=== PATIENT | female | born 1965 | race American Indian/Alaskan Native ===

== ENCOUNTER 2016-12-08 17:21 | Emergency (ER) | payer OTHER, MEDICARE ==
[2016-12-08 17:33] VITALS: BMI 26.3
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
[2016-12-08 21:11] VITALS: BP 120/72; PULSE 73; RESP 20; TEMP 98; O2SAT 98
== END 2016-12-08 21:09 | disposition home or self-care (01) ==
LOC: C.ER 17:21
DX: S13.9XXA Sprain of joints and ligaments of unspecified parts of neck, initial encounter (principal); V89.2XXA Person injured in unspecified motor-vehicle accident, traffic, initial encounter

== ENCOUNTER 2018-02-02 18:40 | Emergency (ER) | payer MEDICARE, OTHER ==
[2018-02-02 18:45] VITALS: BMI 25.0
--- NOTE | 2018-02-02 19:44 | C.PDOC ---
History Of Present Illness 52yo female, presents to the emergency department with complaints of reproducible chest pain, and fatigue that has been worsening over the past few days. Pain is intermittent in nature and worsened with deep breathing. Patient has a Hx of Lupus. Denies nausea/vomiting, fever or chills. No shortness of breath. Time Seen by Provider: 02/02/18 19:44 Chief Complaint (Nursing): Chest Pain History Per: Patient History/Exam Limitations: no limitations Past Medical History Reviewed: Historical Data, Nursing Documentation, Vital Signs Vital Signs: Last Vital Signs Temp 98.2 F 02/02/18 18:46 Pulse 61 02/02/18 18:46 Resp 20 02/02/18 18:46 BP 159/86 H 02/02/18 18:46 Pulse Ox 100 02/02/18 18:46 - Medical History PMH: Asthma - [facility] Procedures INJECT/INFUSE NEC (08/23/04) INTRAOPER CHOLANGIOGRAM (03/07/05) LAPAROSCOP LYSIS-PERITONEAL ADHES (08/09/06) LAPAROSCOP UNILAT SALPINGO-OOPHORECTOMY (08/09/06) LAPAROSCOPIC CHOLECYSTECTOMY (03/07/05) UMBIL HERNIA REPAIR NEC (08/09/06) Family History: States: No Known Family Hx - Social History Hx Alcohol Use: No Hx Substance Use: No - Immunization History Hx Tetanus Toxoid Vaccination: No Hx Influenza Vaccination: No Hx Pneumococcal Vaccination: Yes Review Of Systems Constitutional: Positive for: Malaise. Negative for: Fever Cardiovascular: Positive for: Chest Pain. Negative for: Edema Respiratory: Negative for: Cough Gastrointestinal: Negative for: Nausea, Vomiting Musculoskeletal: Negative for: Back Pain Physical Exam - Physical Exam Appears: Non-toxic, No Acute Distress Skin: Normal Color, Warm, Dry Head: Atraumatic, Normacephalic Eye(s): bilateral: Normal Inspection, PERRL, EOMI Nose: Normal Oral Mucosa: Moist Lips: Normal Appearing Neck: Normal ROM Chest: Symmetrical, Tenderness (chest wall) Cardiovascular: Rhythm Regular, No Murmur Respiratory: Normal Breath Sounds, No Accessory Muscle Use Gastrointestinal/Abdominal: Soft, No Tenderness Back: Normal Inspection Extremity: Normal ROM, No Deformity Neurological/Psych: Oriented x3, Normal Speech ED Course And Treatment - Laboratory Results Result Diagrams: 02/02/18 19:58 02/02/18 19:58 ECG: Interpreted By Me, Viewed By Me ECG Rhythm: Sinus Rhythm (52), Nonspecific Changes O2 Sat by Pulse Oximetry: 100 Pulse Ox Interpretation: Normal - Radiology CXR: Interpreted by Me, Viewed By Me CXR Interpretation: No: Infiltrates, Fracture, Pnemothorax Medical Decision Making Medical Decision Making: Upon provider reevaluation patient is feeling better, is medically stable, and requires no further treatment in the ED at this time. Patient will be discharged home with Rx for .caitlynrin Counseling was provided and all questions were answered regarding diagnosis and need for follow up with dr torres. There is agreement to discharge plan. Return if symptoms persist or worsen. I considered the following diagnoses: acute coronary syndrome, pulmonary embolism, lower respiratory infection, aortic dissection/aneurysm, pneumothorax, pericarditis, esophagitis/GERD, zoster and esophageal rupture but found them to be unlikely based on the history, physical exam, and diagnostics. My conclusions regarding the unlikely diagnoses were based on: the absence of significant EKG abnormalities, the lack of suggestive x-ray findings, the absence of significant abnormalities on cardiac monitoring, the absence of asymmetric pulses,. Pt feels better and wants to go home Disposition Counseled Patient/Family Regarding: Studies Performed, Diagnosis, Need For Followup - Disposition Referrals: Jim Alvarado MD [Staff Provider] - Disposition: HOME/ ROUTINE Disposition Time: 19:44 Condition: FAIR Additional Instructions: Please return if symptoms recur Instructions: Costochondritis (DC) Forms: [employer] (Slovak) - Clinical Impression Clinical Impression: Costochondritis - Scribe Statement The provider has reviewed the documentation as recorded by the Scribe (Catherine Sanchez) Provider Attestation: All medical record entries made by the Scribe were at my direction and personally dictated by me. I have reviewed the chart and agree that the record accurately reflects my personal performance of the history, physical exam, medical decision making, and the department course for this patient. I have also personally directed, reviewed, and agree with the discharge instructions and disposition.
[2018-02-02] MEDS ORDERED: Aspirin 325 mg EC Tablets PO STA (19:54)
[2018-02-02] MEDS ORDERED: Aspirin 325 mg EC Tablets PO ONE (20:01)
[2018-02-02 20:02] LABS: BASO % 0.5 % (0.0-2.0); EOS % 0.5 % (0.0-4.0); HEMOGLOBIN 11.1 g/dL (11.0-16.0); LYMPH # 1.3 K/uL (1.0-4.3); LYMPH % 35.4 % (20.0-40.0); MEAN CORPUSCULAR HEMOGLOBIN 24.9 pg (27.0-31.0); MEAN CORPUSCULAR HGB CONC 32.4 g/dL (33.0-37.0); MEAN PLATELET VOLUME 9.4 fL (7.2-11.7); MONO # 0.3 K/uL (0.0-0.8); MONO % 8.8 % (0.0-10.0); NEUT % 54.8 % (50.0-75.0); NRBC % 0.1 % (0.0-2.0); RBC 4.45 Mil/uL (3.80-5.20); RED CELL DISTRIBUTION WIDTH 15.4 % (11.5-14.5); WHITE BLOOD COUNT 3.7 K/uL (4.8-10.8)
[2018-02-02 20:12] LABS: INR 1.1; PROTHROMBIN TIME 11.7 SECONDS (9.7-12.2)
[2018-02-02 20:20] LABS: ALB/GLOB RATIO 1.5 (1.0-2.1); ALBUMIN 4.4 g/dL (3.5-5.0); ALT/SGPT 27 U/L (9-52); AST/SGOT 22 U/L (14-36); BLOOD UREA NITROGEN 12 mg/dL (7-17); CALCIUM 9.7 mg/dl (8.6-10.4); GFR NON-AFRICAN AMERICAN 58
[2018-02-02 20:30] LABS: B-TYPE NATRIURETIC PEPTIDE 181 pg/mL (0-900)
[2018-02-02 22:13] VITALS: BP 105/52; PULSE 65; RESP 14; TEMP 98; O2SAT 100
--- NOTE | 2018-02-03 15:15 | RAD ---
Date of service: 02/02/2018 PROCEDURE: CHEST RADIOGRAPH, 1 VIEW HISTORY: chest pain COMPARISON: None available. FINDINGS: LUNGS: Clear. PLEURA: No pneumothorax or pleural fluid seen. CARDIOVASCULAR: Normal. OSSEOUS STRUCTURES: No significant abnormalities. VISUALIZED UPPER ABDOMEN: Normal. OTHER FINDINGS: None. IMPRESSION: No active disease.
--- NOTE | 2018-02-05 10:05 | CARD ---
APPROVED REPORT Date of service: 02/02/2018 EKG Measurement Heart [id number] <Conclusion> Sinus bradycardia Otherwise normal ECG
== END 2018-02-02 22:44 | disposition home or self-care (01) ==
LOC: C.ER 18:40
DX: M94.0 Chondrocostal junction syndrome [Tietze] (principal)
CPT/HCPCS: 71045; 80053; 83880; 84484; 85025; 85610; 85730; 93005; 96374; 99285; J1885

== ENCOUNTER 2018-03-25 10:01 | Emergency (ER) | payer MEDICARE, OTHER ==
[2018-03-25 10:10] VITALS: BMI 25.8
[2018-03-25 10:14] VITALS: TEMP 98.7; O2SAT 97
[2018-03-25] MEDS ORDERED: Sodium Chloride 0.9% 1,000 ML IV ONE (10:40)
[2018-03-25] MEDS ORDERED: Sodium Chloride 0.9% 1,000 ML ONE (11:02)
[2018-03-25 11:11] LABS: BASO % 0.3 % (0.0-2.0); EOS % 0.1 % (0.0-4.0); HEMOGLOBIN 11.8 g/dL (11.0-16.0); LYMPH # 0.9 K/uL (1.0-4.3); LYMPH % 13.1 % (20.0-40.0); MEAN CELL VOLUME 77.5 fL (81.0-99.0); MEAN CORPUSCULAR HGB CONC 32.2 g/dL (33.0-37.0); MEAN PLATELET VOLUME 8.9 fL (7.2-11.7); MONO # 0.6 K/uL (0.0-0.8); MONO % 8.7 % (0.0-10.0); NEUT # 5.6 K/uL (1.8-7.0); NEUT % 77.8 % (50.0-75.0); NRBC % 0.1 % (0.0-2.0); RBC 4.72 Mil/uL (3.80-5.20)
[2018-03-25 11:14] LABS: WHITE BLOOD COUNT 7.1 K/uL (4.8-10.8)
[2018-03-25 11:20] LABS: ALBUMIN 4.6 g/dL (3.5-5.0); BLOOD UREA NITROGEN 14 mg/dL (7-17); CALCIUM 9.4 mg/dl (8.6-10.4); GFR NON-AFRICAN AMERICAN > 60
[2018-03-25 11:21] LABS: ALB/GLOB RATIO 1.3 (1.0-2.1); ALT/SGPT 29 U/L (9-52); AST/SGOT 25 U/L (14-36)
[2018-03-25 11:50] LABS: HCG,QUALITATIVE URINE NEGATIVE (NEGATIVE)
--- NOTE | 2018-03-25 11:50 | C.PDOC ---
History Of Present Illness 52 year old female with PMHx of lupus presents to the ED complaining of lupus exacerbation for 2 days. Reports headache and generalized pain all over her body, specifically in her joints. Pt notes she was on steroids for her lupus f or many years but was taken off 2 years ago. Pt had an MRI on 03/23/18 for chronic headache by Dr. More. No change in headache. Also notes dysuria started today. Denies any fever, chest pain, shortness of breath, trauma, visual changes, neck pain, leg swelling, abdominal pain, nausea, or vomiting. Time Seen by Provider: 03/25/18 10:16 Chief Complaint (Nursing): Headache History Per: Patient History/Exam Limitations: no limitations Onset/Duration Of Symptoms: Days (2) Current Symptoms Are (Timing): Still Present Quality: Aching Preceeding Symptoms: None Past Medical History Reviewed: Historical Data, Nursing Documentation, Vital Signs Vital Signs: Last Vital Signs Temp 98.7 F 03/25/18 10:09 Pulse 61 03/25/18 10:09 Resp 19 03/25/18 10:09 BP 123/84 03/25/18 10:09 Pulse Ox 97 03/25/18 10:09 - Medical History PMH: Asthma Other PMH: Lupues, pulmonary arterial HTN Surgical History: - [facility] Procedures INJECT/INFUSE NEC (08/23/04) INTRAOPER CHOLANGIOGRAM (03/07/05) LAPAROSCOP LYSIS-PERITONEAL ADHES (08/09/06) LAPAROSCOP UNILAT SALPINGO-OOPHORECTOMY (08/09/06) LAPAROSCOPIC CHOLECYSTECTOMY (03/07/05) UMBIL HERNIA REPAIR NEC (08/09/06) Family History: States: No Known Family Hx - Social History Hx Alcohol Use: Yes Hx Substance Use: No (past use of marijuana) - Immunization History Hx Tetanus Toxoid Vaccination: No Hx Influenza Vaccination: Yes (2018) Hx Pneumococcal Vaccination: Yes Review Of Systems Constitutional: Positive for: Other (generalized body aches ). Negative for: Fever, Chills Cardiovascular: Negative for: Chest Pain, Edema Respiratory: Negative for: Shortness of Breath Gastrointestinal: Negative for: Nausea, Vomiting Genitourinary: Negative for: Dysuria, Hematuria Neurological: Positive for: Headache Physical Exam - Physical Exam Appears: Non-toxic, No Acute Distress Skin: Warm, Dry, No Rash Head: Atraumatic, Normacephalic Eye(s): bilateral: Normal Inspection, PERRL, EOMI Nose: Normal Oral Mucosa: Moist Neck: Normal ROM, Supple Chest: Symmetrical Cardiovascular: Rhythm Regular Respiratory: Normal Breath Sounds, No Rales, No Rhonchi, No Wheezing Extremity: Normal ROM (5/5 strength ), Tenderness (diffuse joint tenderness), No Pedal Edema, No Deformity, No Swelling Neurological/Psych: Oriented x3, Normal Speech, Normal Motor, Normal Sensation Gait: Steady ED Course And Treatment - Laboratory Results Result Diagrams: 03/25/18 11:04 03/25/18 11:04 O2 Sat by Pulse Oximetry: 97 (RA) Pulse Ox Interpretation: Normal Progress Note: Patient given Toradol and IV fluids. Urine collected and sent to lab for analysis. On re-evaluation, pt states she feel better. Denies sob, chest pain, fever, abdominal pain , or fever. Discussed with her lab results. Instructed strict follow up with RA MD in 1-2 days. Disposition - Disposition Disposition: HOME/ ROUTINE Disposition Time: 12:12 Condition: STABLE Additional Instructions: Follow up with your primary medical doctor or clinic in 2-5 days for further elpidio luation. Take medications as prescribed. Return to the emergency department at any time if symptoms persist or worsen. Prescriptions: Methylprednisolone [Medrol Dose Pack (21 tabs)] 4 mg PO DAILY #21 mg Naproxen [Naprosyn] 1 tab PO BID PRN #20 tab PRN Reason: Pain Nitrofurantoin Macrocrystals [Macrobid] 1 cap PO BID #14 cap Instructions: Urinary Tract Infection, Adult (DC), Lupus (DC) Forms: [employer] (Polish) - Clinical Impression Clinical Impression: SLE exacerbation, Headache - PA / SECURITIES TRADER / Resident Statement MD/DO has reviewed & agrees with the documentation as recorded. - Scribe Statement The provider has reviewed the documentation as recorded by the Scribjulio c Rebolledo All medical record entries made by the Scribe were at my direction and personally dictated by me. I have reviewed the chart and agree that the record accurately reflects my personal performance of the history, physical exam, medical decision making, and the department course for this patient. I have also personally directed, reviewed, and agree with the discharge instructions and disposition.
[2018-03-25 11:51] LABS: SQUAMOUS EPITHIAL 7 /hpf (0-5); URINE BACTERIA RARE (<OCC); URINE BILIRUBIN NEGATIVE (NEGATIVE); URINE BLOOD 3+ (NEGATIVE); URINE CLARITY Hazy (Clear); URINE COLOR Yellow (YELLOW); URINE GLUCOSE (UA) NORMAL (Normal); URINE LEUKOCYTE ESTERASE 3+ Leu/uL (Negative); URINE PROTEIN 2+ mg/dL (NEGATIVE); URINE UROBILINOGEN NORMAL mg/dL (0.2-1.0)
[2018-03-25] MEDS ORDERED: cefTRIAXone IV 1 gm in Dextros 50 ML IV ONE (12:12)
[2018-03-25] MEDS ORDERED: cefTRIAXone 1 gm 1 GM/100 ML BAG IVPB ONE (12:24)
[2018-03-25 13:00] VITALS: BP 126/85; PULSE 75; RESP 18
== END 2018-03-25 13:00 | disposition home or self-care (01) ==
LOC: C.ER 10:01
DX: M32.9 Systemic lupus erythematosus, unspecified (principal); R51 Headache
CPT/HCPCS: 80053; 81001; 84703; 85025; 87086; 87181; 96361; 96374; 96375; 99284; J0696; J1885; J7030

== ENCOUNTER 2018-07-29 09:11 | Emergency (ER) | payer MEDICARE, OTHER ==
--- NOTE | 2018-07-29 09:36 | C.PDOC ---
History Of Present Illness 52 year old female presents for evaluation of persistent headache x5 months, and new onset of uncontrolled bilateral finger movements that started today morning. Pt notes intermittent frontal headache that radiates posteriorly, seen 03/2018 for the same. Pt reports prior PMD visit x2 months ago where she was dx with eyeglass problem but notes no improvement in symptoms with updated eyeglass prescription and limited relief with Excedrin. She also reports saw my fingers stiffen and twist and move by themselves, now resolved. Denies fever, chills, photophobia, nausea, vomiting, and any other associated symptoms. PERSIST FAIRCHILD X 5 MONTHS, NEW ONSET UNCONTROLL B/L FINGER MOVEMENTS ONSET THIS MORNING. PS "SAW MY FINGERS STIFFEN AND TWIST AND MOVE BY THEMSELVES". NOW RESOLVED. INTERMIT FRONTAL TO RADIATION POST FAIRCHILD X 5 MO, SEEN 03/2018 FOR SAME. SAW PMD FOR SAME 2 MO AGO, DX "EYEGLASS PROBLEM" BUT NO IMPROVE W UPDATED EYE GLASS PRESCRIPTION. LIMITED RELIEF W EXCEDRIN. NO OTHER ASSOC SX EXAM NAD NEURO NO FOCAL DEF AO3 GAIT WNL REMAINDER NEG Time Seen by Provider: 07/29/18 09:33 Chief Complaint (Nursing): Headache History Per: Patient History/Exam Limitations: no limitations Onset/Duration Of Symptoms: Days Current Symptoms Are (Timing): Still Present Recent travel outside of the [place]: No Past Medical History Vital Signs: Last Vital Signs Temp 98.6 F 07/29/18 09:17 Pulse 73 07/29/18 09:17 Resp 18 07/29/18 09:17 BP 165/96 H 07/29/18 09:17 Pulse Ox 100 07/29/18 09:17 - Medical History PMH: Asthma Surgical History: - [facility] Procedures INJECT/INFUSE NEC (08/23/04) INTRAOPER CHOLANGIOGRAM (03/07/05) LAPAROSCOP LYSIS-PERITONEAL ADHES (08/09/06) LAPAROSCOP UNILAT SALPINGO-OOPHORECTOMY (08/09/06) LAPAROSCOPIC CHOLECYSTECTOMY (03/07/05) UMBIL HERNIA REPAIR NEC (08/09/06) Family History: States: Unknown Family Hx - Social History Hx Alcohol Use: Yes Hx Substance Use: No - Immunization History Hx Tetanus Toxoid Vaccination: No Hx Influenza Vaccination: Yes Hx Pneumococcal Vaccination: No Review Of Systems Except As Marked, All Systems Reviewed And Found Negative. Constitutional: Negative for: Fever, Chills Eyes: Negative for: Other ((-) photophobia. ) Gastrointestinal: Negative for: Nausea, Vomiting Musculoskeletal: Positive for: Other ((+) uncontrolled bilateral finger movements. ) Neurological: Positive for: Headache Physical Exam - Physical Exam Appears: Non-toxic, No Acute Distress Skin: Warm, Dry, No Rash Head: Atraumatic, Normacephalic Eye(s): bilateral: Normal Inspection Oral Mucosa: Moist Neck: Normal ROM, Supple Chest: Symmetrical, No Deformity Cardiovascular: Rhythm Regular, No Murmur Respiratory: Normal Breath Sounds, No Rales, No Rhonchi, No Wheezing Gastrointestinal/Abdominal: Normal Exam, Soft, No Tenderness Extremity: Bilateral: Atraumatic, Normal Color And Temperature, Normal ROM Neurological/Psych: Oriented x3, Normal Speech, Normal Cognition, No Other ((-) no focal deficits ) ED Course And Treatment - Laboratory Results Result Diagrams: 07/29/18 09:59 07/29/18 09:59 ECG: Interpreted By Me, Viewed By Me ECG Rhythm: Sinus Rhythm ECG Interpretation: Normal Rate From EC O2 Sat by Pulse Oximetry: 100 (RA) Pulse Ox Interpretation: Normal - CT Scan/US CT Head Other Rad Studies (CT/US): Read By Radiologist, Radiology Report Reviewed CT/US Interpretation: FINDINGS: HEMORRHAGE: No intracranial hemorrhage. BRAIN : No mass effect or edema. Minimal age-appropriate atrophy. No white matter ischemic change. No evidence of acute infarct. VENTRICLES: Unremarkable. No hydrocephalus. CALVARIUM: Unremarkable. PARANASAL SINUSES: Unremarkable as visualized. No significant inflammatory changes. MASTOID AIR CELLS: Unremarkable as visualized. No inflammatory changes. OTHER FINDINGS: None. IMPRESSION: No intracranial mass, hemorrhage or evidence of acute infarct. Minimal atrophy. Otherwise unremarkable examination. Progress - Re-Evaluation Re-evaluation Note: 07/29/18 11:00 NO RECUR FINGER SX SINCE INITIAL EVAL. HEAD CT NEG. PERSIST FAIRCHILD. NEURO INTACT 07/29/18 13:07 FEELS BETTER NEURO INTACT. ADVISED NEED FOR NEUROLOGY FU, REFERRALS GIVEN - Data Reviewed Data Reviewed: Lab, Diagnostic imaging, Old records Medical Decision Making Medical Decision Making: Initial plan: -CT Head w/o contrast -Blood sent. Disposition Counseled Patient/Family Regarding: Studies Performed, Diagnosis, Need For Followup, Rx Given - Disposition Referrals: Lata Devlin MD [Staff Provider] - Juan Navarro MD [Staff Provider] - [facility] [Outside] [facility] [Outside] Disposition: HOME/ ROUTINE Disposition Time: 13:08 Condition: IMPROVED Additional Instructions: FOLLOW UP WITH NEUROLOGY. RETURN IF WORSENING SYMPTOMS Prescriptions: Metoclopramide [Reglan] 1 tab PO TID PRN #25 tab PRN Reason: Nausea/Vomiting Instructions: Headache, Adult (DC) Forms: [employer] (Estonian) - Clinical Impression Clinical Impression: Headache, Abnormal involuntary movement - Scribe Statement The provider has reviewed the documentation as recorded by the Scribe (Agustina Agustin) Provider Attestation: All medical record entries made by the Scribe were at my direction and personally dictated by me. I have reviewed the chart and agree that the record accurately reflects my personal performance of the history, physical exam, medical decision making, and the department course for this patient. I have also personally directed, reviewed, and agree with the discharge instructions and disposition.
[2018-07-29 09:47] VITALS: BMI 27.2
[2018-07-29 10:09] LABS: BASO % 0.9 % (0.0-2.0); EOS % 0.4 % (0.0-4.0); HEMOGLOBIN 12.6 g/dL (11.0-16.0); LYMPH % 31.6 % (20.0-40.0); MEAN CELL VOLUME 78.7 fL (81.0-99.0); MEAN CORPUSCULAR HEMOGLOBIN 25.3 pg (27.0-31.0); MEAN CORPUSCULAR HGB CONC 32.2 g/dL (33.0-37.0); MEAN PLATELET VOLUME 9.1 fL (7.2-11.7); MONO # 0.3 K/uL (0.0-0.8); MONO % 9.9 % (0.0-10.0); NEUT # 1.9 K/uL (1.8-7.0); NEUT % 57.2 % (50.0-75.0); NRBC % 0.2 % (0.0-2.0); RBC 4.98 Mil/uL (3.80-5.20); RED CELL DISTRIBUTION WIDTH 15.1 % (11.5-14.5)
[2018-07-29 10:12] LABS: WHITE BLOOD COUNT 3.3 K/uL (4.8-10.8)
[2018-07-29 10:16] LABS: BLOOD UREA NITROGEN 11 mg/dL (7-17); CALCIUM 10.2 mg/dl (8.6-10.4); GFR NON-AFRICAN AMERICAN > 60
--- NOTE | 2018-07-29 10:50 | CT ---
Date of service: 07/29/2018 PROCEDURE: CT HEAD WITHOUT CONTRAST. HISTORY: FAIRCHILD COMPARISON: None available. TECHNIQUE: Axial computed tomography images were obtained through the head/brain without intravenous contrast. Radiation dose: Total exam DLP = 1099.38 mGy-cm. This CT exam was performed using one or more of the following dose reduction techniques: Automated exposure control, adjustment of the mA and/or kV according to patient size, and/or use of iterative reconstruction technique. FINDINGS: HEMORRHAGE: No intracranial hemorrhage. BRAIN: No mass effect or edema. Minimal age-appropriate atrophy. No white matter ischemic change. No evidence of acute infarct. VENTRICLES: Unremarkable. No hydrocephalus. CALVARIUM: Unremarkable. PARANASAL SINUSES: Unremarkable as visualized. No significant inflammatory changes. MASTOID AIR CELLS: Unremarkable as visualized. No inflammatory changes. OTHER FINDINGS: None. IMPRESSION: No intracranial mass, hemorrhage or evidence of acute infarct. Minimal atrophy. Otherwise unremarkable examination.
[2018-07-29] MEDS ORDERED: Dexamethasone 4 mg/1 ml IVP STA (10:51)
[2018-07-29] MEDS ORDERED: Magnesium Sulfate 1 gm in D5W 1 GM/100 ML BAG IVPB STA (10:51)
[2018-07-29] MEDS ORDERED: Sodium Chloride 0.9% 1,000 ML IV STA (10:51)
[2018-07-29] MEDS ORDERED: Dexamethasone 4 mg/1 ml ONE (11:17)
[2018-07-29] MEDS ORDERED: Magnesium Sulfate 1 gm in D5W 1 GM/100 ML BAG IVPB ONE (11:18)
[2018-07-29] MEDS ORDERED: Sodium Chloride 0.9% 1,000 ML ONE (11:18)
[2018-07-29 14:44] VITALS: BP 115/76; PULSE 82; RESP 20; TEMP 98.7; O2SAT 97
--- NOTE | 2018-07-30 09:28 | CARD ---
APPROVED REPORT Date of service: 07/29/2018 EKG Measurement Heart [id number] ME [id number] <Conclusion> Sinus rhythm with short ME with premature supraventricular complexes Low voltage QRS Septal infarct, age undetermined Abnormal ECG
== END 2018-07-29 14:44 | disposition home or self-care (01) ==
LOC: C.ER 09:11
DX: R51 Headache (principal); R25.9 Unspecified abnormal involuntary movements
CPT/HCPCS: 70450; 80048; 82948; 85025; 93005; 96365; 96375; 99285; J1100; J1885; J2765; J3475; J7030

== ENCOUNTER 2018-08-01 09:06 | Observation (INO) | payer MEDICARE, OTHER ==
[2018-08-01 09:07] VITALS: BMI 27.2
[2018-08-01 09:48] LABS: BASO % 0.2 % (0.0-2.0); EOS % 0.4 % (0.0-4.0); HEMOGLOBIN 11.8 g/dL (11.0-16.0); LYMPH # 0.9 K/uL (1.0-4.3); LYMPH % 25.8 % (20.0-40.0); MEAN CELL VOLUME 78.5 fL (81.0-99.0); MEAN CORPUSCULAR HEMOGLOBIN 24.9 pg (27.0-31.0); MEAN CORPUSCULAR HGB CONC 31.7 g/dL (33.0-37.0); MEAN PLATELET VOLUME 8.7 fL (7.2-11.7); MONO # 0.4 K/uL (0.0-0.8); MONO % 12.3 % (0.0-10.0); NEUT # 2.1 K/uL (1.8-7.0); NEUT % 61.3 % (50.0-75.0); RBC 4.75 Mil/uL (3.80-5.20); RED CELL DISTRIBUTION WIDTH 14.7 % (11.5-14.5); WHITE BLOOD COUNT 3.5 K/uL (4.8-10.8)
[2018-08-01 09:59] LABS: INR 1.2; PROTHROMBIN TIME 12.8 SECONDS (9.7-12.2)
[2018-08-01 10:02] LABS: ALB/GLOB RATIO 1.5 (1.0-2.1); ALBUMIN 4.5 g/dL (3.5-5.0); ALT/SGPT 31 U/L (9-52); AST/SGOT 29 U/L (14-36); BLOOD UREA NITROGEN 13 mg/dL (7-17); CALCIUM 9.8 mg/dl (8.6-10.4); GFR NON-AFRICAN AMERICAN > 60; HDL CHOLESTEROL 46 mg/dL (30-70)
[2018-08-01 10:13] LABS: LDL CHOLESTEROL 89 mg/dL (0-129)
--- NOTE | 2018-08-01 10:21 | CT ---
Date of service: 08/01/2018 PROCEDURE: CT HEAD WITHOUT CONTRAST. HISTORY: weakness COMPARISON: Noncontrast head CT performed 07/29/18 TECHNIQUE: Axial computed tomography images were obtained through the head/brain without intravenous contrast. Radiation dose: Total exam DLP = 1062.67 mGy-cm. This CT exam was performed using one or more of the following dose reduction techniques: Automated exposure control, adjustment of the mA and/or kV according to patient size, and/or use of iterative reconstruction technique. FINDINGS: Streak artifact obscures evaluation of the skull base. HEMORRHAGE: No intracranial hemorrhage. BRAIN: No mass effect or edema. Intracranial atherosclerosis. The joseph-white matter differentiation appears intact. Please note that MRI with diffusion imaging is more sensitive in the detection of acute ischemic event. VENTRICLES: No hydrocephalus. CALVARIUM: Unremarkable. PARANASAL SINUSES: Unremarkable as visualized. No significant inflammatory changes. MASTOID AIR CELLS: Unremarkable as visualized. No inflammatory changes. OTHER FINDINGS: None. IMPRESSION: No acute intracranial pathology identified. Findings as above.
--- NOTE | 2018-08-01 11:06 | RAD ---
Date of service: 08/01/2018 HISTORY: weakness COMPARISON: 02/02/2018 TECHNIQUE: 1 view obtained. FINDINGS: LUNGS: No active pulmonary disease. PLEURA: No significant pleural effusion identified, no pneumothorax apparent. CARDIOVASCULAR: No aortic atherosclerotic calcification present. Normal cardiac size. No pulmonary vascular congestion. OSSEOUS STRUCTURES: No significant abnormalities. VISUALIZED UPPER ABDOMEN: Normal. OTHER FINDINGS: None. IMPRESSION: No active disease.
--- NOTE | 2018-08-01 11:23 | C.PDOC ---
Time Seen by Provider: 08/01/18 09:26 Chief Complaint (Nursing): Weakness/Neurological Deficit Past Medical History Vital Signs: Last Vital Signs Temp 98.6 F 08/01/18 09:19 Pulse 79 08/01/18 10:27 Resp 14 08/01/18 10:27 BP 139/79 08/01/18 10:27 Pulse Ox 99 08/01/18 10:27 - Medical History PMH: Asthma Surgical History: - [facility] Procedures INJECT/INFUSE NEC (08/23/04) INTRAOPER CHOLANGIOGRAM (03/07/05) LAPAROSCOP LYSIS-PERITONEAL ADHES (08/09/06) LAPAROSCOP UNILAT SALPINGO-OOPHORECTOMY (08/09/06) LAPAROSCOPIC CHOLECYSTECTOMY (03/07/05) UMBIL HERNIA REPAIR NEC (08/09/06) Family History: States: Unknown Family Hx - Social History Hx Alcohol Use: Yes Hx Substance Use: No - Immunization History Hx Tetanus Toxoid Vaccination: No Hx Influenza Vaccination: Yes Hx Pneumococcal Vaccination: No ED Course And Treatment - Laboratory Results Result Diagrams: 08/01/18 09:42 08/01/18 09:42 Lab Results: PT 12.8 SECONDS (9.7-12.2) H 08/01/18 09:42 INR 1.2 08/01/18 09:42 APTT 39 SECONDS (21-34) H 08/01/18 09:42 Troponin I < 0.0120 ng/mL (0.00-0.120) 08/01/18 09:42 Total Bilirubin 0.3 mg/dL (0.2-1.3) 08/01/18 09:42 AST 29 U/L (14-36) 08/01/18 09:42 ALT 31 U/L (9-52) 08/01/18 09:42 Alkaline Phosphatase 69 U/L (38-126) 08/01/18 09:42 Total Protein 7.6 g/dL (6.3-8.3) 08/01/18 09:42 Albumin 4.5 g/dL (3.5-5.0) 08/01/18 09:42 Globulin 3.0 gm/dL (2.2-3.9) 08/01/18 09:42 Albumin/Globulin Ratio 1.5 (1.0-2.1) 08/01/18 09:42 O2 Sat by Pulse Oximetry: 99 Disposition - Disposition
--- NOTE | 2018-08-01 11:32 | C.PDOC ---
History Of Present Illness 52 y/o female,w/PMhx of lupus, presents to the ER complaining of intermittent headache which has been present for the past few days. Patient states that pain radiates down the bilateral side of the neck. Patient states that she feels nauseous. Patient also complaining of tingling in right arm and right leg which has been present for the past 3 days. She notes that she has weakness in her right side. She states that she has been "holding onto things" while walking because she has pain in her right leg. She also notes that she took Reglan and Excedrin. 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 Denies having falls,CP,SOB, difficulty speaking, swallowing. Time Seen by Provider: 08/01/18 09:26 Chief Complaint (Nursing): Weakness/Neurological Deficit History Per: Patient History/Exam Limitations: no limitations Onset/Duration Of Symptoms: Days Current Symptoms Are (Timing): Still Present Severity: Moderate Past Medical History Reviewed: Historical Data, Nursing Documentation, Vital Signs Vital Signs: Last Vital Signs Temp 98.6 F 08/01/18 09:19 Pulse 79 08/01/18 10:27 Resp 14 08/01/18 10:27 BP 139/79 08/01/18 10:27 Pulse Ox 99 08/01/18 10:27 - Medical History PMH: Asthma Surgical History: - [facility] Procedures INJECT/INFUSE NEC (08/23/04) INTRAOPER CHOLANGIOGRAM (03/07/05) LAPAROSCOP LYSIS-PERITONEAL ADHES (08/09/06) LAPAROSCOP UNILAT SALPINGO-OOPHORECTOMY (08/09/06) LAPAROSCOPIC CHOLECYSTECTOMY (03/07/05) UMBIL HERNIA REPAIR NEC (08/09/06) Family History: States: No Known Family Hx - Social History Hx Alcohol Use: Yes Hx Substance Use: No - Immunization History Hx Tetanus Toxoid Vaccination: No Hx Influenza Vaccination: Yes Hx Pneumococcal Vaccination: No Review Of Systems Except As Marked, All Systems Reviewed And Found Negative. Constitutional: Negative for: Fever, Chills Neurological: Positive for: Weakness, Headache, Other (tingling sensation) Physical Exam - Physical Exam Appears: Non-toxic, No Acute Distress Skin: Normal Color, Warm, Dry Head: Atraumatic, Normacephalic Eye(s): bilateral: Normal Inspection, PERRL, EOMI, Other (no nystagmus) Nose: Normal Oral Mucosa: Moist Neck: Supple Chest: Symmetrical Cardiovascular: Rhythm Regular Respiratory: Normal Breath Sounds, No Rales, No Rhonchi, No Wheezing Gastrointestinal/Abdominal: Normal Exam, Soft, No Tenderness, No Guarding, No Rebound Extremity: Normal ROM Neurological/Psych: Oriented x3, Normal Speech, Normal Cognition, Normal Cranial Nerves, No Cerebellar Signs, Normal Motor, Normal Sensation, Other (no protonator drift) ED Course And Treatment - Laboratory Results Result Diagrams: 08/03/18 07:59 08/03/18 07:59 Lab Results: PT 12.8 SECONDS (9.7-12.2) H 08/01/18 09:42 INR 1.2 08/01/18 09:42 APTT 39 SECONDS (21-34) H 08/01/18 09:42 Troponin I < 0.0120 ng/mL (0.00-0.120) 08/01/18 09:42 Total Bilirubin 0.3 mg/dL (0.2-1.3) 08/01/18 09:42 AST 29 U/L (14-36) 08/01/18 09:42 ALT 31 U/L (9-52) 08/01/18 09:42 Alkaline Phosphatase 69 U/L (38-126) 08/01/18 09:42 Total Protein 7.6 g/dL (6.3-8.3) 08/01/18 09:42 Albumin 4.5 g/dL (3.5-5.0) 08/01/18 09:42 Globulin 3.0 gm/dL (2.2-3.9) 08/01/18 09:42 Albumin/Globulin Ratio 1.5 (1.0-2.1) 08/01/18 09:42 ECG: Interpreted By Me, Viewed By Me ECG Rhythm: Sinus Rhythm Interpretation Of ECG: NSR with normal intervals, normal axises, PAC's, and non specific T wave changes Rate From EC O2 Sat by Pulse Oximetry: 99 (RA) Pulse Ox Interpretation: Normal - CT Scan/US CT-Head Other Rad Studies (CT/US): Read By Radiologist, Radiology Report Reviewed CT/US Interpretation: Date of service: 08/01/2018. PROCEDURE: CT HEAD WITHOUT CONTRAST. HISTORY: weakness. COMPARISON: Noncontrast head CT performed 07/29/18. TECHNIQUE: Axial computed tomography images were obtained through the head/brain without intravenous contrast. Radiation dose: Total exam DLP = 1062.67 mGy-cm. This CT exam was performed using one or more of the following dose reduction techniques: Automated exposure control, adjustment of the mA and/or kV according to patient size, and/or use of iterative reconstruction technique. FINDINGS: Streak artifact obscures evaluation of the skull base. HEMORRHAGE: No intracranial hemorrhage. BRAIN: No mass effect or edema. Intracranial atherosclerosis. The joseph-white matter differentiation appears intact. Please note that MRI with diffusion imaging is more sensitive in the detection of acute ischemic event. VENTRICLES: No hydrocephalus. CALVARIUM: Unremarkable. PARANASAL SINUSES: Unremarkable as visualized. No significant inflammatory changes. MASTOID AIR CELLS: Unremarkable as visualized. No i nflammatory changes. OTHER FINDINGS: None. IMPRESSION: No acute intracranial pathology identified. Findings as above. CT-Cervical Spine Other Rad Studies (CT/US): Read By Radiologist, Radiology Report Reviewed CT/US Interpretation: Date of service: 08/01/2018. PROCEDURE: CT Cervical Spine with contrast. HISTORY: paresthesias. COMPARISON: Comparison is made to the previous CT of the cervical spine dated 12/08/2016. TECHNIQUE: Axial computed tomography images were obtained of the cervical spine without the use of intravenous contrast. Coronal and sagittal reformatted images were created and reviewed. Radiation dose: Total exam DLP = 578.9 mGy-cm. This CT exam was performed using one or more of the following dose reduction techniques: Automated exposure control, adjustment of the mA and/or kV according to patient size, and/or use of iterative reconstruction technique. FINDINGS: VERTEBRAE: No fracture. Normal alignment. No destructive bony lesion. DISCS/SPINAL CANAL/NEURAL FORAMINA: At C3-C4 there is a central 4 millimeter bulging disc associated with mild spinal stenosis. At C5-C6 there is a 3.5 millimeter central bulging disc which also associated with mild thecal sac narrowing. No evidence of enhancing mass lesion in the cervical spine. Discs heights are grossly preserved. PARASPINAL SOFT TISSUES: There is subcutaneous round lesion at the level of C2 in the posterior aspect of the neck likely represents sebaceous cyst. The thyroid gland is mildly enlarged. There is 1.1 centimeter nodule at the right thyroid lobe. Mild emphysematous changes in the lung apices are again noted. OTHER FINDINGS: None. IMPRESSION: Mild degenerative disc changes. Small central posterior bulging disc at C3-C4 and C5-C6 associated with mild spinal stenosis. CT-Lumbar Spine Other Rad Studies (CT/US): Read By Radiologist, Radiology Report Reviewed CT/US Interpretation: Date of service: 08/01/2018. PROCEDURE: CT Lumbar Spine without contrast. HISTORY: paresthesia. COMPARISON: None available. TECHNIQUE: Axial computed tomography images were obtained of the lumbar spine without the use of intravenous contrast. Coronal and sagittal reformatted images were created and reviewed. Radiation dose: Total exam DLP = 991.92 mGy-cm. This CT exam was performed using one or more of the following dose reduction techniques: Automated exposure control, adjustment of the mA and/or kV according to patient size, and/or use of iterative reconstruction technique. FINDINGS: VERTEBRAE: Unremarkable. No fracture. Normal alignment. DISCS/SPINAL CA NAL/NEURAL FORAMINA: L1-2: Unremarkable. L2-3: There is small broad- based bulging disc associated with posterior flavum ligament and facet joint hypertrophy which resulting in mild spinal and bilateral neural foraminal narrowing. L3-4: There are severe disc and endplate degenerative changes noted at L3-L4 associated with severe narrowing of the intervertebral disc is space. There is osteophyte disc protrusion complex associated with posterior ligament and facet joint hypertrophy which resulting in moderate spinal and bilateral neural foraminal narrowing left more than right. L4-5: There is small to moderate-sized broad-based bulging disc associated with posterior ligament and facet joint hypertrophy which resulting in moderate spinal and lateral recess narrowing. There is mild bilateral neural foraminal stenosis. L5-S1: There is a small central bulging disc noted without evidence of significant spinal or neural foraminal narrowing. PARASPINAL SOFT TISSUES: Unremarkable. OTHER FINDINGS: None. IMPRESSION: Moderate to mildly severe spondylosis and degenerative changes more prominent at L3-L4. Moderate size osteophyte bulging disc complex at L3-L4 and small to moderate size bulging disc at L4-L5 associated with posterior ligament and facet joint hypertrophy which resulting in moderate spinal and lateral recess narrowing as well as bilateral neural foraminal stenosis. If clinically warranted further assessment by MRI may be obtained. CT-Thoracic Spine Other Rad Studies (CT/US): Read By Radiologist, Radiology Report Reviewed CT/US Interpretation: Date of service: 08/01/2018. PROCEDURE: CT Thoracic Spine with contrast. HISTORY: paresthesia. COMPARISON: None available. TECHNIQUE: Axial computed tomography images were obtained of the thoracic spine were obtained, following administration of intravenous iodinated contrast. Coronal and sagittal reformatted images were created and reviewed. Intravenous contrast dose: 100 cc of Omnipaque 300 intravenously. Radiation dose: Total exam DLP = 427.08 mGy-cm. This CT exam was performed using one or more of the following dose reduction techniques: Automated exposure control, adjustment of the mA and/or kV according to patient size, and/or use of iterative reconstruction technique. FINDINGS: VERTEBRAE: Unremarkable. No fracture. Normal alignment. DISCS/SPINAL CANAL/NEURAL FORAMINA: Mild degenerative disc changes noted. Multilevel mild narrowing of the intervertebral disc is space noted.. There is a small broad-based bulging disc at T10-T11 associated with posterior ligament and facet joint hypertrophy which resulting in mild spinal stenosis... PARASPINAL SOFT TISSUES: Unremarkable. ENHANCEMENT: No abnormal enhancement. OTHER FINDINGS: Unremarkable. IMPRESSION: Mild degenerative disc changes. Small broad-based bulging disc at T10-T11 associated with posterior ligament and facet joint hypertrophy which resulting in mild spinal stenosis. Medical Decision Making Medical Decision Making: Plan: --Labs --UA --CXR --CT-Head --CT- Cervical Spine --CT- Lumbar Spine --CT- Thoracic Spine 11:45: Case discussed with , hospitalist. Dr. Garcia is requesting CT- Lumbar Spine and CT-Thoracic Spine. Patient will be admitted under the service of . Disposition - Disposition Disposition: HOSPITALIZED Disposition Time: 11:45 Condition: STABLE - Clinical Impression Clinical Impression: SLE exacerbation - Scribe Statement The provider has reviewed the documentation as recorded by the Mike Batista Provider Attestation: All medical record entries made by the Clarkeibjulio c were at my direction and personally dictated by me. I have reviewed the chart and agree that the record accurately reflects my personal performance of the history, physical exam, medical decision making, and the department course for this patient. I have also personally directed, reviewed, and agree with the discharge instructions and d isposition.
--- NOTE | 2018-08-01 12:03 | CP.PCM.HP ---
<Maria Teresa Niño - Last Filed: 08/01/18 17:44> History of Present Illness - History of Present Illness History of Present Illness: CC: Right hand/leg cramps, right facial tingling Patient is a 52 year old female with pmhx of SLE, pulmonary arterial hypertension who presents to ED today for evaluation of right leg cramps, right index finger cramps, and right facial tingling. Patient reports episode right leg and index finger cramp this morning after getting out of bed. She reports an episode of right sided epistaxis, with resolution by tissue packing. Patient then noticed right sided cheek/frontal/parietal occipital tingling sensation. Patient reports 3 episodes of cramping over 1 day last week; lasting 5-10 minutes, relieved with massage. Patient reports chronic headaches, worsened since stopping her SLE medication Triclear? Patient also notes lightheadedness with position changes. Patient denies weakness, facial droop, slurred speech, syncope, chest pain, SOB, LE edema/pain pmhx: SLE, PAH pshx: left hip bone graft, 1 , right ovarian cystectomy meds: reglan 10mg prn, excedrin migrain allergies: NKDA sochx: former tobacco/marijuana use, quit 20+ yrs ago; social alcohol use, pt is unemployed(disability 2/2 SLE) famhx: DM2, gastric cancer, colon cancer Full code Present on Admission - Present on Admission Any Indicators Present on Admission: No Review of Systems - Constitutional Constitutional: Fatigue, Headache - EENT Eyes: absent: Blurred Vision Nose/Mouth/Throat: Epistaxis - Cardiovascular Cardiovascular: absent: Chest Pain, Claudication, Dyspnea, Pedal Edema, Syncope - Respiratory Respiratory: absent: Cough - Gastrointestinal Gastrointestinal: absent: Abdominal Pain, Nausea, Vomiting - Musculoskeletal Musculoskeletal: Arthralgias, Muscle Cramps, Muscle Weakness, Tingling - Neurological Neurological: Headaches, Tingling. absent: Abnormal Speech, Sensory Deficit Past Patient History - Past Social History Smoking Status: Former Smoker - PULMONARY Hx Asthma: Yes - NEUROLOGICAL Hx Neurological Disorder: Yes - ENDOCRINE/METABOLIC Hx Endocrine Disorders: Yes Hx Systemic Lupus Erythematosus: Yes - HEMATOLOGICAL/ONCOLOGICAL Hx Blood Disorders: Yes (See comment) Other/Comment: vitamoin D deficiency - PSYCHIATRIC Hx Substance Use: No - SURGICAL HISTORY Hx Surgeries: Yes Hx Section: Yes (X1) Other/Comment: hip sx - ANESTHESIA Hx Anesthesia: Yes Hx Anesthesia Reactions: No Hx Malignant Hyperthermia: No Meds Allergies/Adverse Reactions: Allergies Allergy/AdvReac Type Severity Reaction Status Date / Time No Known Allergies Allergy Verified 07/29/18 09:22 Physical Exam - Constitutional Appears: Non-toxic, No Acute Distress - Head Exam Head Exam: ATRAUMATIC, NORMAL INSPECTION, NORMOCEPHALIC - Eye Exam Eye Exam: EOMI, Normal appearance. absent: Nystagmus Pupil Exam: NORMAL ACCOMODATION, PERRL - ENT Exam ENT Exam: Mucous Membranes Moist, Normal Exam, Normal Oropharynx - Neck Exam Neck exam: Positive for: Tenderness (cervical muscle TTP). Negative for: Ly mphadenopathy Additional comments: 1 cm sebaceous cyst, midline, dorsal ~C3 - Respiratory Exam Respiratory Exam: Decreased Breath Sounds, Clear to Auscultation Bilateral, NORMAL BREATHING PATTERN - Cardiovascular Exam Cardiovascular Exam: REGULAR RHYTHM, +S1, +S2. absent: Tachycardia - GI/Abdominal Exam GI & Abdominal Exam: Normal Bowel Sounds, Soft. absent: Distended, Tenderness - Extremities Exam Extremities exam: Positive for: full ROM, joint swelling, pedal pulses present. Negative for: calf tenderness, pedal edema Additional comments: left hip vertical incision, well healed. Left fibular incision/graft, well healed b/l hands: dry skin, redness. joint deformity worst at 5th digit right index finger midline, full ROM, non tender to palpation - Back Exam Back exam: NORMAL INSPECTION - Neurological Exam Neurological exam: Alert, CN II-XII Intact, Reflexes Normal - Expanded Neurological Exam Expanded Patient oriented to: person, place, time Cranial nerves: EOM's Intact: Normal, Facial Sensation: Normal, Nystagmus: Normal, Tongue Deviation: Normal Upper motor neuron: Pronator Drift: Normal Neuro motor strength exam: Left Upper Extremity: 5, Right Upper Extremity: 5, Left Lower Extremity: 5, Right Lower Extremity: 5 - Psychiatric Exam Psychiatric exam: Anxious - Skin Skin Exam: Dry (excessively), Intact, Normal Color, Warm Results - Vital Signs Recent Vital Signs: Last Vital Signs Temp 98.6 F 08/01/18 09:19 Pulse 79 08/01/18 10:27 Resp 14 08/01/18 10:27 BP 139/79 08/01/18 10:27 Pulse Ox 99 08/01/18 11:58 - Labs Result Diagrams: 08/01/18 09:42 08/01/18 09:42 Labs: Laboratory Results - last 24 hr 08/01/18 08/01/18 08/01/18 09:21 09:22 09:42 WBC 3.5 L RBC 4.75 Hgb 11.8 Hct 37.3 MCV 78.5 L MCH 24.9 L MCHC 31.7 L RDW 14.7 H Plt Count 191 MPV 8.7 Neut % (Auto) 61.3 Lymph % (Auto) 25.8 [place] % (Auto) 12.3 H Eos % (Auto) 0.4 Baso % (Auto) 0.2 Neut # (Auto) 2.1 Lymph # (Auto) 0.9 L [place] # (Auto) 0.4 Eos # (Auto) 0.0 Baso # (Auto) 0.0 PT INR APTT Sodium Potassium Chloride Carbon Dioxide Anion Gap BUN Creatinine Est GFR ( Amer) Est GFR (Non-Af Amer) POC Glucose (mg/dL) 52 L 56 L Random Glucose Hemoglobin A1c Calcium Total Bilirubin AST ALT Alkaline Phosphatase Troponin I Total Protein Albumin Globulin Albumin/Globulin Ratio Triglycerides Cholesterol LDL Cholesterol Direct HDL Cholesterol 08/01/18 08/01/18 08/01/18 09:42 09:42 09:42 WBC RBC Hgb Hct MCV MCH MCHC RDW Plt Count MPV Neut % (Auto) Lymph % (Auto) [place] % (Auto) Eos % (Auto) Baso % (Auto) Neut # (Auto) Lymph # (Auto) [place] # (Auto) Eos # (Auto) Baso # (Auto) PT 12.8 H INR 1.2 APTT 39 H Sodium 142 Potassium 3.9 Chloride 104 Carbon Dioxide 28 Anion Gap 13 BUN 13 Creatinine 0.7 Est GFR ( Amer) > 60 Est GFR (Non-Af Amer) > 60 POC Glucose (mg/dL) Random Glucose 99 Hemoglobin A1c 5.5 Calcium 9.8 Total Bilirubin 0.3 AST 29 ALT 31 Alkaline Phosphatase 69 Troponin I < 0.0120 Total Protein 7.6 Albumin 4.5 Globulin 3.0 Albumin/Globulin Ratio 1.5 Triglycerides 73 Cholesterol 153 LDL Cholesterol Direct 89 HDL Cholesterol 46 Assessment & Plan - Assessment and Plan (Free Text) Assessment: 52 year old female with pmhx of SLE and PAH admitted for evaluation of right sided facial tingling and right hand/knee cramps Plan: Neuralgia -CT head: No acute intracranial pathology -CT cervical: mild degenerative disc changes. Small central posterior bulging disc at C3-C4 and C5-C6 associated w/ mild spinal stenosis -CT lumbar: Bulging discs at L3-L4, L4-L5 -CT thoracic: bulging disc at T10-T11 -Neurology consult, Dr. Navarro -f/u MRI results SLE -previously on Imuran 50mg qd, patient stopped taking; rheum Dr. Paris -f/u YANI w/ reflex -f/u anti DS DNA -f/u CPK Adrenal Insufficiency, suspected -f/u cortisol pm for baseline -if low, order ACTH to be administered 30 min prior to AM cortisol -f/u AM cortisol response -NS +vitamins @100/hr -hypoglycemic on admission at 50 -accuchecks q6h -hypoglycemia protocol PAH -not currently being treated Ppx: VTE: heparin q8 GI: pepcid 20mg BID OT/PT HHD Discussed with Dr. Garcia -Maria Teresa Niño, PGY-1 <Evelyn Garcia V - Last Filed: 08/01/18 22:01> Results - Vital Signs Recent Vital Signs: Last Vital Signs Temp 98.7 F 08/01/18 16:20 Pulse 70 08/01/18 16:20 Resp 20 08/01/18 16:20 BP 151/73 H 08/01/18 16:20 Pulse Ox 99 08/01/18 18:39 - Labs Result Diagrams: 08/01/18 09:42 08/01/18 09:42 Labs: Laboratory Results - last 24 hr 08/01/18 08/01/18 08/01/18 09:21 09:22 09:42 WBC 3.5 L RBC 4.75 Hgb 11.8 Hct 37.3 MCV 78.5 L MCH 24.9 L MCHC 31.7 L RDW 14.7 H Plt Count 191 MPV 8.7 Neut % (Auto) 61.3 Lymph % (Auto) 25.8 [place] % (Auto) 12.3 H Eos % (Auto) 0.4 Baso % (Auto) 0.2 Neut # (Auto) 2.1 Lymph # (Auto) 0.9 L [place] # (Auto) 0.4 Eos # (Auto) 0.0 Baso # (Auto) 0.0 ESR 10 PT INR APTT Sodium Potassium Chloride Carbon Dioxide Anion Gap BUN Creatinine Est GFR ( Amer) Est GFR (Non-Af Amer) POC Glucose (mg/dL) 52 L 56 L Random Glucose Hemoglobin A1c Calcium Total Bilirubin AST ALT Alkaline Phosphatase Total Creatine Kinase Troponin I C-Reactive Protein Total Protein Albumin Globulin Albumin/Globulin Ratio Triglycerides Cholesterol LDL Cholesterol Direct HDL Cholesterol Vitamin B12 TSH 3rd Generation Plasma Cortisol PM Urine Color Urine Clarity Urine pH Ur Specific [place] Urine Protein Urine Glucose (UA) Urine Ketones Urine Blood Urine Nitrate Urine Bilirubin Urine Urobilinogen Ur Leukocyte Esterase Urine WBC (Auto) Urine RBC (Auto) Ur Squamous Epith Cells Urine HCG, Qual RPR 08/01/18 08/01/18 08/01/18 09:42 09:42 09:42 WBC RBC Hgb Hct MCV MCH MCHC RDW Plt Count MPV Neut % (Auto) Lymph % (Auto) [place] % (Auto) Eos % (Auto) Baso % (Auto) Neut # (Auto) Lymph # (Auto) [place] # (Auto) Eos # (Auto) Baso # (Auto) ESR PT 12.8 H INR 1.2 APTT 39 H Sodium 142 Potassium 3.9 Chloride 104 Carbon Dioxide 28 Anion Gap 13 BUN 13 Creatinine 0.7 Est GFR ( Amer) > 60 Est GFR (Non-Af Amer) > 60 POC Glucose (mg/dL) Random Glucose 99 Hemoglobin A1c 5.5 Calcium 9.8 Total Bilirubin 0.3 AST 29 ALT 31 Alkaline Phosphatase 69 Total Creatine Kinase Troponin I < 0.0120 C-Reactive Protein < 5.00 Total Protein 7.6 Albumin 4.5 Globulin 3.0 Albumin/Globulin Ratio 1.5 Triglycerides 73 Cholesterol 153 LDL Cholesterol Direct 89 HDL Cholesterol 46 Vitamin B12 TSH 3rd Generation Plasma Cortisol PM Urine Color Urine Clarity Urine pH Ur Specific [place] Urine Protein Urine Glucose (UA) Urine Ketones Urine Blood Urine Nitrate Urine Bilirubin Urine Urobilinogen Ur Leukocyte Esterase Urine WBC (Auto) Urine RBC (Auto) Ur Squamous Epith Cells Urine HCG, Qual RPR 08/01/18 08/01/18 08/01/18 12:06 16:57 16:57 WBC RBC Hgb Hct MCV MCH MCHC RDW Plt Count MPV Neut % (Auto) Lymph % (Auto) [place] % (Auto) Eos % (Auto) Baso % (Auto) Neut # (Auto) Lymph # (Auto) [place] # (Auto) Eos # (Auto) Baso # (Auto) ESR PT INR APTT Sodium Potassium Chloride Carbon Dioxide Anion Gap BUN Creatinine Est GFR ( Amer) Est GFR (Non-Af Amer) POC Glucose (mg/dL) Random Glucose Hemoglobin A1c Calcium Total Bilirubin AST ALT Alkaline Phosphatase Total Creatine Kinase 106 Troponin I C-Reactive Protein Total Protein Albumin Globulin Albumin/Globulin Ratio Triglycerides Cholesterol LDL Cholesterol Direct HDL Cholesterol Vitamin B12 674 TSH 3rd Generation 0.86 Plasma Cortisol PM Urine Color Yellow Urine Clarity Hazy Urine pH 5.0 Ur Specific [place] 1.015 Urine Protein Negative Urine Glucose (UA) Normal Urine Ketones Negative Urine Blood Negative Urine Nitrate Negative Urine Bilirubin Negative Urine Urobilinogen Normal Ur Leukocyte Esterase Neg Urine WBC (Auto) 2 Urine RBC (Auto) < 1 Ur Squamous Epith Cells 4 Urine HCG, Qual Negative RPR Nonreactive 08/01/18 08/01/18 08/01/18 16:57 21:48 21:50 WBC RBC Hgb Hct MCV MCH MCHC RDW Plt Count MPV Neut % (Auto) Lymph % (Auto) [place] % (Auto) Eos % (Auto) Baso % (Auto) Neut # (Auto) Lymph # (Auto) [place] # (Auto) Eos # (Auto) Baso # (Auto) ESR PT INR APTT Sodium Potassium Chloride Carbon Dioxide Anion Gap BUN Creatinine Est GFR ( Amer) Est GFR (Non-Af Amer) POC Glucose (mg/dL) 66 96 Random Glucose Hemoglobin A1c Calcium Total Bilirubin AST ALT Alkaline Phosphatase Total Creatine Kinase Troponin I C-Reactive Protein Total Protein Albumin Globulin Albumin/Globulin Ratio Triglycerides Cholesterol LDL Cholesterol Direct HDL Cholesterol Vitamin B12 TSH 3rd Generation Plasma Cortisol PM 5.68 Urine Color Urine Clarity Urine pH Ur Specific [place] Urine Protein Urine Glucose (UA) Urine Ketones Urine Blood Urine Nitrate Urine Bilirubin Urine Urobilinogen Ur Leukocyte Esterase Urine WBC (Auto) Urine RBC (Auto) Ur Squamous Epith Cells Urine HCG, Qual RPR Attending/Attestation - Attestation I have personally seen and examined this patient.: Yes I have fully participated in the care of the patient.: Yes I have reviewed all pertinent clinical information: Yes Notes (Text): Patient seen, examined and case discussed with day-time resident. Patient diagnosed with lupus, off her imuran for past 2 months noted numbness and tingling over the right lower extremity and over the knee. No apparent focal neurologic deficits. Patient appears clinically dry on exam. Will start IV fluids. check vitamins r/o neuropathy. Patient has completed Ct scan of the spine; noted for disc bulges. Neurology consulted on the case. Physical therapy on board. ESR and CRP taken; both are normal.
[2018-08-01 12:23] LABS: HCG,QUALITATIVE URINE NEGATIVE (NEGATIVE)
[2018-08-01 12:25] LABS: SQUAMOUS EPITHIAL 4 /hpf (0-5); URINE BILIRUBIN NEGATIVE (NEGATIVE); URINE BLOOD NEGATIVE (NEGATIVE); URINE CLARITY Hazy (Clear); URINE COLOR Yellow (YELLOW); URINE GLUCOSE (UA) NORMAL (Normal); URINE LEUKOCYTE ESTERASE NEG Leu/uL (Negative); URINE PROTEIN NEGATIVE (NEGATIVE); URINE UROBILINOGEN NORMAL mg/dL (0.2-1.0)
[2018-08-01] MEDS ORDERED: Iohexol 300 100 ML IJ ONE (12:48)
[2018-08-01] MEDS ORDERED: Dextrose 50% SYRINGE Inj (50 ml) IV PRN (13:41)
[2018-08-01] MEDS ORDERED: Glucagon Recombinant 1 mg Inj IM PRN (13:41)
--- NOTE | 2018-08-01 13:41 | CT ---
Date of service: 08/01/2018 PROCEDURE: CT Cervical Spine with contrast HISTORY: paresthesias COMPARISON: Comparison is made to the previous CT of the cervical spine dated 12/08/2016 TECHNIQUE: Axial computed tomography images were obtained of the cervical spine without the use of intravenous contrast. Coronal and sagittal reformatted images were created and reviewed. Radiation dose: Total exam DLP = 578.9 mGy-cm. This CT exam was performed using one or more of the following dose reduction techniques: Automated exposure control, adjustment of the mA and/or kV according to patient size, and/or use of iterative reconstruction technique. FINDINGS: VERTEBRAE: No fracture. Normal alignment. No destructive bony lesion. DISCS/SPINAL CANAL/NEURAL FORAMINA: At C3-C4 there is a central 4 millimeter bulging disc associated with mild spinal stenosis. At C5-C6 there is a 3.5 millimeter central bulging disc which also associated with mild thecal sac narrowing. No evidence of enhancing mass lesion in the cervical spine. Discs heights are grossly preserved. PARASPINAL SOFT TISSUES: There is subcutaneous round lesion at the level of C2 in the posterior aspect of the neck likely represents sebaceous cyst. The thyroid gland is mildly enlarged. There is 1.1 centimeter nodule at the right thyroid lobe. Mild emphysematous changes in the lung apices are again noted. OTHER FINDINGS: None. IMPRESSION: Mild degenerative disc changes. Small central posterior bulging disc at C3-C4 and C5-C6 associated with mild spinal stenosis.
--- NOTE | 2018-08-01 13:48 | CT ---
Date of service: 08/01/2018 PROCEDURE: CT Thoracic Spine with contrast HISTORY: paresthesia COMPARISON: None available. TECHNIQUE: Axial computed tomography images were obtained of the thoracic spine were obtained, following administration of intravenous iodinated contrast. Coronal and sagittal reformatted images were created and reviewed. Intravenous contrast dose: 100 cc of Omnipaque 300 intravenously. Radiation dose: Total exam DLP = 427.08 mGy-cm. This CT exam was performed using one or more of the following dose reduction techniques: Automated exposure control, adjustment of the mA and/or kV according to patient size, and/or use of iterative reconstruction technique. FINDINGS: VERTEBRAE: Unremarkable. No fracture. Normal alignment. DISCS/SPINAL CANAL/NEURAL FORAMINA: Mild degenerative disc changes noted. Multilevel mild narrowing of the intervertebral disc is space noted.. There is a small broad-based bulging disc at T10-T11 associated with posterior ligament and facet joint hypertrophy which resulting in mild spinal stenosis... PARASPINAL SOFT TISSUES: Unremarkable. ENHANCEMENT: No abnormal enhancement. OTHER FINDINGS: Unremarkable. IMPRESSION: Mild degenerative disc changes. Small broad-based bulging disc at T10-T11 associated with posterior ligament and facet joint hypertrophy which resulting in mild spinal stenosis.
--- NOTE | 2018-08-01 14:23 | CT ---
Date of service: 08/01/2018 PROCEDURE: CT Lumbar Spine without contrast HISTORY: paresthesia COMPARISON: None available. TECHNIQUE: Axial computed tomography images were obtained of the lumbar spine without the use of intravenous contrast. Coronal and sagittal reformatted images were created and reviewed. Radiation dose: Total exam DLP = 991.92 mGy-cm. This CT exam was performed using one or more of the following dose reduction techniques: Automated exposure control, adjustment of the mA and/or kV according to patient size, and/or use of iterative reconstruction technique. FINDINGS: VERTEBRAE: Unremarkable. No fracture. Normal alignment. DISCS/SPINAL CANAL/NEURAL FORAMINA: L1-2: Unremarkable. L2-3: There is small broad-based bulging disc associated with posterior flavum ligament and facet joint hypertrophy which resulting in mild spinal and bilateral neural foraminal narrowing. L3-4: There are severe disc and endplate degenerative changes noted at L3-L4 associated with severe narrowing of the intervertebral disc is space. There is osteophyte disc protrusion complex associated with posterior ligament and facet joint hypertrophy which resulting in moderate spinal and bilateral neural foraminal narrowing left more than right. L4-5: There is small to moderate-sized broad-based bulging disc associated with posterior ligament and facet joint hypertrophy which resulting in moderate spinal and lateral recess narrowing. There is mild bilateral neural foraminal stenosis. L5-S1: There is a small central bulging disc noted without evidence of significant spinal or neural foraminal narrowing. PARASPINAL SOFT TISSUES: Unremarkable. OTHER FINDINGS: None. IMPRESSION: Moderate to mildly severe spondylosis and degenerative changes more prominent at L3-L4. Moderate size osteophyte bulging disc complex at L3-L4 and small to moderate size bulging disc at L4-L5 associated with posterior ligament and facet joint hypertrophy which resulting in moderate spinal and lateral recess narrowing as well as bilateral neural foraminal stenosis. If clinically warranted further assessment by MRI may be obtained.
[2018-08-01 14:49] VITALS: RESP 20
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
[2018-08-01] MEDS: Folic Acid 1 MG, Multivitamin (MVI) 10 ML, Thiamine 100 MG in Sodium Chloride 0.9% 1,00... IV SCH (19:13)
[2018-08-02 08:19] LABS: BASO % 0.4 % (0.0-2.0); EOS % 0.7 % (0.0-4.0); HEMOGLOBIN 12.1 g/dL (11.0-16.0); LYMPH # 0.8 K/uL (1.0-4.3); LYMPH % 30.9 % (20.0-40.0); MEAN CELL VOLUME 77.8 fL (81.0-99.0); MEAN CORPUSCULAR HEMOGLOBIN 25.3 pg (27.0-31.0); MEAN CORPUSCULAR HGB CONC 32.4 g/dL (33.0-37.0); MEAN PLATELET VOLUME 8.8 fL (7.2-11.7); MONO # 0.3 K/uL (0.0-0.8); MONO % 12.4 % (0.0-10.0); NEUT # 1.5 K/uL (1.8-7.0); NEUT % 55.6 % (50.0-75.0); NRBC % 0.3 % (0.0-2.0); RBC 4.8 Mil/uL (3.80-5.20); RED CELL DISTRIBUTION WIDTH 14.9 % (11.5-14.5); WHITE BLOOD COUNT 2.7 K/uL (4.8-10.8)
[2018-08-02 08:47] LABS: ALB/GLOB RATIO 1.5 (1.0-2.1); ALBUMIN 4.1 g/dL (3.5-5.0); ALT/SGPT 20 U/L (9-52); AST/SGOT 29 U/L (14-36); BLOOD UREA NITROGEN 11 mg/dL (7-17); CALCIUM 9.4 mg/dl (8.6-10.4); GFR NON-AFRICAN AMERICAN > 60
--- NOTE | 2018-08-02 10:49 | MRI ---
Date of service: 08/02/2018 PROCEDURE: MRI BRAIN WITHOUT CONTRAST HISTORY: Right sided cramping, tingling COMPARISON: CT head without contrast from 08/01/2018 TECHNIQUE: Multiplanar, multisequence MR images of the brain were obtained without intravenous contrast enhancement. FINDINGS: HEMORRHAGE: None DWI: No evidence of an acute or early subacute infarction. BRAIN PARENCHYMA: Chavira-white matter differentiation is preserved. There is no mass, mass effect or abnormal extra-axial fluid collection. There is no territorial infarction. The midline sagittal structures are normal. VENTRICLES: There is mild age advanced global parenchymal volume loss and proportionate enlargement of the ventricles and cortical sulci. CRANIUM: There is normal bone marrow signal pattern. ORBITS: Grossly unremarkable. PARANASAL SINUSES/MASTOIDS: There is a retention cyst/polyp in the right maxillary sinus. The remaining included paranasal sinuses are clear. The mastoid air cells are clear. VASCULAR SYSTEM: There are normal signal voids in the larger intracranial arteries. OTHER FINDINGS: None. IMPRESSION: No acute intracranial abnormality. Specifically, no evidence for acute infarction or demyelinating disease. Mild age advanced global parenchymal volume loss.
--- NOTE | 2018-08-02 11:05 | MRI ---
Date of service: 08/01/2018 PROCEDURE: MR CERVICAL SPINE WITHOUT CONTRAST HISTORY: R sided cramping, tingling COMPARISON: None available. TECHNIQUE: Multiecho multiplanar sequences were performed through the cervical spine without the use of intravenous contrast. FINDINGS: There straightening of the cervical spine with loss of normal cervical lordosis. Vertebral alignment is normal. Vertebral height is maintained. There is no acute fracture or spondylolisthesis. Bone marrow signal is within normal limits. The craniocervical junction is normal. The atlantoaxial joint is normal. 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 The spinal cord is normal in contour, caliber and has normal intrinsic signal. C2-C3: No disc herniation, spinal canal stenosis or neural foraminal narrowing. C3-C4: Broad-based disc osteophyte complex without central spinal canal stenosis. No neural foraminal narrowing. C4-C5: Broad-based disc osteophyte complex with small central disc protrusion which indents the ventral thecal sac with mild spinal canal stenosis. Asymmetric right uncovertebral joint hypertrophy and mild bilateral facet arthropathy contribute to mild right neural foraminal narrowing C5-C6: Broad-based disc osteophyte complex with small right posterolateral disc protrusion and mild spinal canal stenosis. Mild bilateral facet arthropathy contribute to mild right neural foraminal narrowing. C6-C7: No disc herniation, spinal canal stenosis or neural foraminal narrowing. C7-T1: No disc herniation, spinal canal stenosis or neural foraminal narrowing. OTHER FINDINGS: None. IMPRESSION: Mild multilevel degenerative disc disease superimposed on a congenitally narrow spinal canal due to congenital short pedicles, worse at C4-5 with a broad-based disc osteophyte complex with superimposed central disc protrusion, mild spinal canal stenosis and mild right neural foraminal narrowing. Additional comments as described above. A preliminary report was provided by [employer].
--- NOTE | 2018-08-02 11:22 | MRI ---
Date of service: 08/02/2018 PROCEDURE: MR LUMBAR SPINE WITHOUT CONTRAST HISTORY: R sided cramping, tingling COMPARISON: CT lumbar spine without contrast from 08/01/2018. TECHNIQUE: Multiecho multiplanar sequences were performed through the lumbar spine without the use of intravenous contrast. FINDINGS: There is normal alignment of the lumbar vertebral bodies. There is normal lumbar lordosis. There is no acute fracture or spondylolysis. Bone marrow signal is heterogeneous however within normal limits. There are degenerative endplate marrow changes at L3-4. The conus medullaris terminates at a normal level and the nerve roots of cauda equina are normal. There desiccation of the L3-4 disc. The remaining disc heights are maintained. T12-L1: No disc herniation, spinal canal stenosis or neural foraminal narrowing. L1-2: No disc herniation, spinal canal stenosis or neural foraminal narrowing. L2-3: Mild posterior disc bulge and ligamentum flavum infolding without spinal canal stenosis or neural foraminal narrowing. There is a superimposed left foraminal disc protrusion and mild left neural foraminal narrowing. L3-4: Diffuse posterior disc bulge indents the ventral thecal sac in conjunction with moderate ligamentum flavum infolding result in mild spinal canal stenosis. Moderate bilateral facet arthropathy contribute to moderate neural foraminal narrowing. Also noted is a superimposed left foraminal and far lateral annular tear and disc protrusion which abuts the exiting left L3 nerve root. L4-5: Diffuse posterior disc bulge and mild ligamentum flavum infolding without central spinal canal stenosis. Mild bilateral facet arthropathy contribute to mild neural foraminal narrowing. L5-S1: Posterior disc bulge and mild ligamentum flavum infolding without central spinal canal stenosis. Moderate bilateral facet arthropathy without neural foraminal narrowing. OTHER FINDINGS: Paraspinous soft tissues are normal. Imaged portion of the retroperitoneum is within normal limits. IMPRESSION: 1. Disc desiccation and diffuse posterior disc bulge at L3-4 which in conjunction with moderate ligamentum flavum infolding result in mild spinal canal stenosis. Moderate bilateral facet arthropathy contribute to moderate neural foraminal narrowing. Superimposed left foraminal and far lateral annular tear and disc protrusion likely abuts the exiting left L3 nerve root. 2. Additional comments as described above.
--- NOTE | 2018-08-02 13:40 | CP.PCM.PN ---
<Maria Teresa Niño - Last Filed: 08/02/18 14:08> Subjective - Date & Time of Evaluation Date of Evaluation: 08/02/18 Time of Evaluation: 09:20 - Subjective Subjective: Patient examined at bedside. Reports improvement in overall well being including headache, denies cramping, extremity pain/weakness, denies facial paresthesias. Patient reports some nausea associated with anxiety during MRI last night. Currently denies, chest pain, SOB, nausea, vomiting, myalgias. Objective - Vital Signs/Intake and Output Vital Signs (last 24 hours): Temp Pulse Resp BP Pulse Ox 98.1 F 74 20 130/73 96 08/02/18 07:20 08/02/18 11:08 08/02/18 07:20 08/02/18 07:20 08/02/18 07:20 - Medications Medications: Current Medications Acetaminophen (Tylenol 325mg Tab) 650 mg PO Q6 PRN PRN Reason: Pain, moderate (4-7) Last Admin: 08/02/18 05:55 Dose: 650 mg Dextrose (Dextrose 50% Inj) 0 ml IV STAT PRN; Protocol PRN Reason: Hypoglycemia Protocol Dextrose (Glutose 15) 0 gm PO ONCE PRN; Protocol PRN Reason: Hypoglycemia Protocol Famotidine (Pepcid) 20 mg PO BID GEOVANY Last Admin: 08/02/18 10:55 Dose: 20 mg Glucagon (Glucagen Diagnostic Kit) 0 mg IM STAT PRN; Protocol PRN Reason: Hypoglycemia Protocol Heparin Sodium (Porcine) (Heparin) 5,000 units SC Q8 [facility] Last Admin: 08/02/18 05:10 Dose: 5,000 units Dextrose (Dextrose 5% In Water 1000 Ml) 1,000 mls @ 0 mls/hr IV .Q0M PRN; Protocol PRN Reason: Hypoglycemia Protocol Folic Acid 1 mg/ Multivitamins /Vitamin C 10 ml/ Thiamine HCl 100 mg/ Sodium Chloride 1,011.2 mls @ 100 mls/hr IV Q24H [facility] Last Admin: 08/01/18 19:13 Dose: 100 mls/hr Ibuprofen (Motrin Tab) 400 mg PO Q6H PRN PRN Reason: Headache Last Admin: 08/01/18 19:12 Dose: 400 mg Ondansetron HCl (Zofran Inj) 4 mg IVP Q8H PRN PRN Reason: Nausea/Vomiting Last Admin: 08/02/18 09:22 Dose: 4 mg Pneumococcal Polyvalent Vaccine (Pneumovax 23 Vaccine) 0.5 ml IM .ONCE ONE Stop: 08/03/18 12:01 - Labs Labs: 08/02/18 07:55 08/02/18 07:55 PT 12.8 SECONDS (9.7-12.2) H 08/01/18 09:42 INR 1.2 08/01/18 09:42 APTT 39 SECONDS (21-34) H 08/01/18 09:42 - Constitutional Appears: Non-toxic, No Acute Distress - Head Exam Head Exam: ATRAUMATIC, NORMAL INSPECTION, NORMOCEPHALIC - Eye Exam Eye Exam: EOMI, Normal appearance - ENT Exam ENT Exam: Mucous Membranes Moist, Normal Exam - Neck Exam Neck Exam: Full ROM, Normal Inspection Additional comments: 1 cm sebaceous cyst, midline, dorsal ~C3 - Respiratory Exam Respiratory Exam: Decreased Breath Sounds, Clear to Ausculation Bilateral, NOR MAL BREATHING PATTERN - Cardiovascular Exam Cardiovascular Exam: REGULAR RHYTHM, +S1, +S2. absent: Bradycardia, Murmur - GI/Abdominal Exam GI & Abdominal Exam: Soft, Normal Bowel Sounds. absent: Distended, Tenderness - Extremities Exam Extremities Exam: Normal Inspection. absent: Calf Tenderness, Joint Swelling, Pedal Edema Additional comments: left hip vertical incision, well healed. Left fibular incision/graft, well healed b/l hands: dry skin, redness. joint deformity worst at 5th digit right index finger midline, full ROM, non tender to palpation - Back Exam Back Exam: NORMAL INSPECTION - Neurological Exam Neurological Exam: Alert, Awake, CN II-XII Intact, Normal Gait, Oriented x3. absent: Motor Sensory Deficit - Psychiatric Exam Psychiatric exam: Normal Affect, Normal Mood - Skin Skin Exam: Dry (improving), Intact, Normal Color, Warm Assessment and Plan - Assessment and Plan (Free Text) Assessment: 52 year old female with pmhx of SLE and PAH admitted for evaluation of paresthesias, right sided cramps, chronic headaches Plan: Neuralgia -CT head: No acute intracranial pathology -CT cervical: mild degenerative disc changes. Small central posterior bulging disc at C3-C4 and C5-C6 associated w/ mild spinal stenosis -CT lumbar: Bulging discs at L3-L4, L4-L5 -CT thoracic: bulging disc at T10-T11 -Neurology consult, Dr. Navarro -MRI brain: No acute intracranial abnormality. Mild age advanced global parenchymal volume loss. 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 -MRI lumbar: posterior disc bulge at L3-L4 -given ativan 0.5mg ivp x1 for pre-imaging anxiety Leukopenia -WBC 3.5 on admission --->2.7 -RPR negative -HIV negative -likely 2/2 SLE, chronic SLE -previously on Imuran 50mg qd, patient stopped taking; rheum Dr. Paris -f/u YANI w/ reflex -f/u anti DS DNA -CK 106; WNL -CRP/ESR; WNL Orthostatic Hypotension -initial orthostatics negative -NS+vitamins @100/hr -repeat orthostatics negative s/p IVF repletion Adrenal Insufficiency, ruled out -PM cortisol, WNL; -hypoglycemic on admission at 50 -accuchecks q6h -hypoglycemia protocol -encouraged frequent PO intake PAH -not currently being treated Ppx: VTE: heparin q8 GI: pepcid 20mg BID OT/PT HHD Discussed with Dr. Garcia -Maria Teresa Niño, PGY-1 <Evelyn Garcia V - Last Filed: 08/03/18 16:48> Objective - Vital Signs/Intake and Output Vital Signs (last 24 hours): Temp Pulse Resp BP Pulse Ox 98.6 F 53 L 20 140/83 98 08/03/18 07:00 08/03/18 07:30 08/03/18 07:00 08/03/18 07:00 08/03/18 07:00 Intake and Output: 08/03/18 08/03/18 06:59 18:59 Intake Total 350 Balance 350 - Medications Medications: Current Medications Acetaminophen (Tylenol 325mg Tab) 650 mg PO Q6 PRN PRN Reason: Pain, moderate (4-7) Last Admin: 08/02/18 05:55 Dose: 650 mg Dextrose (Dextrose 50% Inj) 0 ml IV STAT PRN; Protocol PRN Reason: Hypoglycemia Protocol Dextrose (Glutose 15) 0 gm PO ONCE PRN; Protocol PRN Reason: Hypoglycemia Protocol Famotidine (Pepcid) 20 mg PO BID GEOVANY Last Admin: 08/03/18 09:19 Dose: 20 mg Glucagon (Glucagen Diagnostic Kit) 0 mg IM STAT PRN; Protocol PRN Reason: Hypoglycemia Protocol Heparin Sodium (Porcine) (Heparin) 5,000 units SC Q8 [facility] Last Admin: 08/03/18 13:11 Dose: 5,000 units Dextrose (Dextrose 5% In Water 1000 Ml) 1,000 mls @ 0 mls/hr IV .Q0M PRN; Protocol PRN Reason: Hypoglycemia Protocol Folic Acid 1 mg/ Multivitamins /Vitamin C 10 ml/ Thiamine HCl 100 mg/ Sodium Chloride 1,011.2 mls @ 100 mls/hr IV Q24H [facility] Last Admin: 08/02/18 17:32 Dose: 100 mls/hr Ibuprofen (Motrin Tab) 400 mg PO Q6H PRN PRN Reason: Headache Last Admin: 08/03/18 00:24 Dose: 400 mg Ondansetron HCl (Zofran Inj) 4 mg IVP Q8H PRN PRN Reason: Nausea/Vomiting Last Admin: 08/02/18 09:22 Dose: 4 mg - Labs Labs: 08/03/18 07:59 08/03/18 07:59 PT 12.8 SECONDS (9.7-12.2) H 08/01/18 09:42 INR 1.2 08/01/18 09:42 APTT 39 SECONDS (21-34) H 08/01/18 09:42 Attending/Attestation - Attestation I have personally seen and examined this patient.: Yes I have fully participated in the care of the patient.: Yes I have reviewed all pertinent clinical information, including history, physical exam and plan: Yes Notes (Text): This is late computer entry for 08/02/18. Patient seen, examined and case discussed with day-time resident. Patient hydration improved with IV fluids. patient completed cervical MRI last night and due to complete further MRI today. Physical therapy worked with patient today. Follow-up with neurology.
[2018-08-02 16:41] LABS: BARBITURATES, UR NEGATIVE (NEGATIVE); BENZODIAZEPINES, UR NEGATIVE (NEGATIVE); OPIATES, UR NEGATIVE (NEGATIVE); PHENCYCLIDINE, UR NEGATIVE (NEGATIVE)
[2018-08-02] MEDS: Folic Acid 1 MG, Multivitamin (MVI) 10 ML, Thiamine 100 MG in Sodium Chloride 0.9% 1,00... IV SCH (17:32)
[2018-08-03 07:40] VITALS: PULSE 53
[2018-08-03 08:08] LABS: BASO % 0.7 % (0.0-2.0); EOS # 0.1 K/uL (0.0-0.7); EOS % 2.4 % (0.0-4.0); HEMOGLOBIN 11.8 g/dL (11.0-16.0); LYMPH # 0.9 K/uL (1.0-4.3); MEAN CELL VOLUME 78.4 fL (81.0-99.0); MEAN CORPUSCULAR HEMOGLOBIN 25.1 pg (27.0-31.0); MEAN CORPUSCULAR HGB CONC 32.1 g/dL (33.0-37.0); MEAN PLATELET VOLUME 8.8 fL (7.2-11.7); MONO # 0.3 K/uL (0.0-0.8); MONO % 11.8 % (0.0-10.0); NEUT # 1.2 K/uL (1.8-7.0); NEUT % 48.1 % (50.0-75.0); NRBC % 0.3 % (0.0-2.0); RBC 4.71 Mil/uL (3.80-5.20); RED CELL DISTRIBUTION WIDTH 15.1 % (11.5-14.5); WHITE BLOOD COUNT 2.4 K/uL (4.8-10.8)
[2018-08-03 08:22] LABS: ALB/GLOB RATIO 1.4 (1.0-2.1); ALT/SGPT 25 U/L (9-52); AST/SGOT 24 U/L (14-36); BLOOD UREA NITROGEN 11 mg/dL (7-17); CALCIUM 9.7 mg/dl (8.6-10.4); GFR NON-AFRICAN AMERICAN > 60
[2018-08-03 08:33] VITALS: BP 140/83; TEMP 98.6
[2018-08-03] MEDS ORDERED: Pneumococcal 23-Valent Vaccine IM ONE (12:00)
--- NOTE | 2018-08-03 16:29 | CP.PCM.PN ---
<UrbanTiffany Y - Last Filed: 08/03/18 16:27> Subjective - Date & Time of Evaluation Date of Evaluation: 08/03/18 Time of Evaluation: 12:30 - Subjective Subjective: PGY-1 Neurology Progress Note for Dr. Navarro Patient was seen and examined today in no acute distress with son at bedside. Nurse reports no overnight events. Patient has no new complaints and feels better. She was able to walk with PT without assistance and no longer feels the tingling sensation. Denies chest pain, shortness of breath, fever, chills, numbness, muscle weakness. Objective - Vital Signs/Intake and Output Vital Signs (last 24 hours): Temp Pulse Resp BP Pulse Ox 98.6 F 53 L 20 140/83 98 08/03/18 07:00 08/03/18 07:30 08/03/18 07:00 08/03/18 07:00 08/03/18 07:00 Intake and Output: 08/03/18 08/03/18 06:59 18:59 Intake Total 350 Balance 350 - Medications Medications: Current Medications Acetaminophen (Tylenol 325mg Tab) 650 mg PO Q6 PRN PRN Reason: Pain, moderate (4-7) Last Admin: 08/02/18 05:55 Dose: 650 mg Dextrose (Dextrose 50% Inj) 0 ml IV STAT PRN; Protocol PRN Reason: Hypoglycemia Protocol Dextrose (Glutose 15) 0 gm PO ONCE PRN; Protocol PRN Reason: Hypoglycemia Protocol Famotidine (Pepcid) 20 mg PO BID [facility] Last Admin: 08/03/18 09:19 Dose: 20 mg Glucagon (Glucagen Diagnostic Kit) 0 mg IM STAT PRN; Protocol PRN Reason: Hypoglycemia Protocol Heparin Sodium (Porcine) (Heparin) 5,000 units SC Q8 [facility] Last Admin: 08/03/18 13:11 Dose: 5,000 units Dextrose (Dextrose 5% In Water 1000 Ml) 1,000 mls @ 0 mls/hr IV .Q0M PRN; Protocol PRN Reason: Hypoglycemia Protocol Folic Acid 1 mg/ Multivitamins /Vitamin C 10 ml/ Thiamine HCl 100 mg/ Sodium C hloride 1,011.2 mls @ 100 mls/hr IV Q24H [facility] Last Admin: 08/02/18 17:32 Dose: 100 mls/hr Ibuprofen (Motrin Tab) 400 mg PO Q6H PRN PRN Reason: Headache Last Admin: 08/03/18 00:24 Dose: 400 mg Ondansetron HCl (Zofran Inj) 4 mg IVP Q8H PRN PRN Reason: Nausea/Vomiting Last Admin: 08/02/18 09:22 Dose: 4 mg - Labs Labs: 08/03/18 07:59 08/03/18 07:59 PT 12.8 SECONDS (9.7-12.2) H 08/01/18 09:42 INR 1.2 08/01/18 09:42 APTT 39 SECONDS (21-34) H 08/01/18 09:42 - Constitutional Appears: Non-toxic, No Acute Distress - Head Exam Head Exam: ATRAUMATIC, NORMOCEPHALIC - Eye Exam Eye Exam: EOMI, Normal appearance, PERRL Pupil Exam: NORMAL ACCOMODATION - ENT Exam ENT Exam: Mucous Membranes Moist - Neck Exam Neck Exam: Tenderness (C5-6) - Respiratory Exam Respiratory Exam: Clear to Ausculation Bilateral, NORMAL BREATHING PATTERN - Cardiovascular Exam Cardiovascular Exam: REGULAR RHYTHM, +S1, +S2 - GI/Abdominal Exam GI & Abdominal Exam: Soft. absent: Distended, Guarding, Tenderness - Back Exam Back Exam: NORMAL INSPECTION - Neurological Exam Neurological Exam: Alert, Awake, Normal Gait, Oriented x3 Additional comments: opposition intact sensation symmetrical - Psychiatric Exam Psychiatric exam: Anxious - Skin Skin Exam: Normal Color Additional comments: Left hip vertical incision, well healed. Left fibular incision/graft, well healed Assessment and Plan - Assessment and Plan (Free Text) Assessment: Patient is a 52 year old female with PMHx of SLE, pulmonary arterial hypetension admitted for worsening neuralgia including right sided hand and leg cramps with right facial tingling. Neurology was consulted by Dr. Garcia for this issue, including occipital neuralgia. Plan: Neuralgia Head CT without contrast (08/01): No acute intracranial pathology identified. CSpine CT without contrast (08/01): Mild degenerative disc changes. Small central posterior bulging disc at C3-C4 and C5-C6 associated with mild spinal stenosis. TSpine CT without contrast (08/01): Mild degenerative disc changes. Small broad- based bulging disc at T10-T11 associated with posterior ligament and facet joint hypertrophy which resulting in mild spinal stenosis. LSpine CT without contrast (08/01): Moderate to mildly severe spondylosis and degenerative changes more prominent at L3-L4. Moderate size osteophyte bulging disc complex at L3-L4 and small to moderate size bulging disc at L4-L5 associated with posterior ligament and facet joint hypertrophy which resulting in moderate spinal and lateral recess narrowing as well as bilateral neural foraminal stenosis. If clinically warranted further assessment by MRI may be obtained. Brain MRI without contrast (08/02): No acute intracranial abnormality. Specifically, no evidence for acute infarction or demyelinating disease. Mild age advanced global parenchymal volume loss. 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 LSpine MRI without contrast (08/02): Disc desiccation and diffuse posterior disc bulge at L3-4 which in conjunction with moderate ligamentum flavum infolding result in mild spinal canal stenosis. Moderate bilateral facet arthropathy contribute to moderate neural foraminal narrowing. Superimposed left foraminal and far lateral annular tear and disc protrusion likely abuts the exiting left L3 nerve root. - given patient's clinical improvement and imaging, she is clear from a neuro perspective. There is no need for outpatient follow up if symptoms do not recur. Please follow up as outpatient if symptoms occur. If symptoms are acute, please go to the nearest ED. d/w Dr. Ramon Urban PGY-1 <Juan Navarro - Last Filed: 08/05/18 21:05> Objective - Vital Signs/Intake and Output Vital Signs (last 24 hours): Temp Pulse Resp BP Pulse Ox 98.6 F 53 L 20 140/83 98 08/03/18 07:00 08/03/18 07:30 08/03/18 07:00 08/03/18 07:00 08/03/18 07:00 - Labs Labs: 08/03/18 07:59 08/03/18 07:59 PT 12.8 SECONDS (9.7-12.2) H 08/01/18 09:42 INR 1.2 08/01/18 09:42 APTT 39 SECONDS (21-34) H 08/01/18 09:42 Attending/Attestation - Attestation I have personally seen and examined this patient.: Yes I have fully participated in the care of the patient.: Yes I have reviewed all pertinent clinical information, including history, physical exam and plan: Yes Notes (Text): I agree with the assessment and plan. No further recommendations at this time.
--- NOTE | 2018-08-03 16:38 | CP.PCM.DIS ---
Provider - Provider Date of Admission: 08/01/18 14:00 Attending physician: Evelyn Garcia DO Consults: 08/01/18 13:36 Neurology Consult Routine Comment: Consulting Provider: Juan Navarro Consulting Physician: Juan Navarro Reason for Consult: occipital neuralgia Time Spent in preparation of Discharge (in minutes): 35 Diagnosis - Discharge Diagnosis (1) Occipital neuralgia Status: Acute (2) Leukopenia Status: Chronic (3) Systemic lupus erythematosus Status: Chronic (4) Cervical neuralgia Status: Acute Hospital Course - Lab Results Lab Results: Most Recent Lab Values WBC 2.4 K/uL (4.8-10.8) L 08/03/18 07:59 RBC 4.71 Mil/uL (3.80-5.20) 08/03/18 07:59 Hgb 11.8 g/dL (11.0-16.0) 08/03/18 07:59 Hct 36.9 % (34.0-47.0) 08/03/18 07:59 MCV 78.4 fL (81.0-99.0) L 08/03/18 07:59 MCH 25.1 pg (27.0-31.0) L 08/03/18 07:59 MCHC 32.1 g/dL (33.0-37.0) L 08/03/18 07:59 RDW 15.1 % (11.5-14.5) H 08/03/18 07:59 Plt Count 188 K/uL (130-400) 08/03/18 07:59 MPV 8.8 fL (7.2-11.7) 08/03/18 07:59 Neut % (Auto) 48.1 % (50.0-75.0) L 08/03/18 07:59 Lymph % (Auto) 37.0 % (20.0-40.0) 08/03/18 07:59 [place] % (Auto) 11.8 % (0.0-10.0) H 08/03/18 07:59 Eos % (Auto) 2.4 % (0.0-4.0) 08/03/18 07:59 Baso % (Auto) 0.7 % (0.0-2.0) 08/03/18 07:59 Neut # (Auto) 1.2 K/uL (1.8-7.0) L 08/03/18 07:59 Lymph # (Auto) 0.9 K/uL (1.0-4.3) L 08/03/18 07:59 [place] # (Auto) 0.3 K/uL (0.0-0.8) 08/03/18 07:59 Eos # (Auto) 0.1 K/uL (0.0-0.7) 08/03/18 07:59 Baso # (Auto) 0.0 K/uL (0.0-0.2) 08/03/18 07:59 ESR 10 mm/hr (0-20) 08/01/18 09:42 PT 12.8 SECONDS (9.7-12.2) H 08/01/18 09:42 INR 1.2 08/01/18 09:42 APTT 39 SECONDS (21-34) H 08/01/18 09:42 Sodium 142 mmol/L (132-148) 08/03/18 07:59 Potassium 4.4 mmol/L (3.6-5.2) 08/03/18 07:59 Chloride 105 mmol/L (98-107) 08/03/18 07:59 Carbon Dioxide 30 mmol/L (22-30) 08/03/18 07:59 Anion Gap 11 (10-20) 08/03/18 07:59 BUN 11 mg/dL (7-17) 08/03/18 07:59 Creatinine 0.7 mg/dL (0.7-1.2) 08/03/18 07:59 Est GFR ( Amer) > 60 08/03/18 07:59 Est GFR (Non-Af Amer) > 60 08/03/18 07:59 POC Glucose (mg/dL) 94 mg/dL (65-110) 08/03/18 11:30 Random Glucose 87 mg/dL (65-105) 08/03/18 07:59 Hemoglobin A1c 5.5 % (4.2-6.5) 08/01/18 09:42 Calcium 9.7 mg/dl (8.6-10.4) 08/03/18 07:59 Phosphorus 3.7 mg/dL (2.5-4.5) 08/02/18 07:55 Magnesium 1.8 mg/dL (1.6-2.3) 08/02/18 07:55 Total Bilirubin 0.2 mg/dL (0.2-1.3) 08/03/18 07:59 AST 24 U/L (14-36) 08/03/18 07:59 ALT 25 U/L (9-52) 08/03/18 07:59 Alkaline Phosphatase 58 U/L (38-126) 08/03/18 07:59 Total Creatine Kinase 106 U/L (30-135) 08/01/18 16:57 Troponin I < 0.0120 ng/mL (0.00-0.120) 08/01/18 09:42 C-Reactive Protein < 5.00 mg/L (0.0-9.9) 08/01/18 09:42 Total Protein 6.7 g/dL (6.3-8.3) 08/03/18 07:59 Albumin 4.0 g/dL (3.5-5.0) 08/03/18 07:59 Globulin 2.8 gm/dL (2.2-3.9) 08/03/18 07:59 Albumin/Globulin Ratio 1.4 (1.0-2.1) 08/03/18 07:59 Triglycerides 73 mg/dL (0-149) 08/01/18 09:42 Cholesterol 153 mg/dL (0-199) 08/01/18 09:42 LDL Cholesterol Direct 89 mg/dL (0-129) 08/01/18 09:42 HDL Cholesterol 46 mg/dL (30-70) 08/01/18 09:42 Vitamin B12 674 pg/mL (239-931) 08/01/18 16:57 25-OH Vitamin D Total 34.0 NG/ML (30.0-100.0) 08/02/18 11:49 TSH 3rd Generation 0.86 mIU/L (0.46-4.68) 08/01/18 16:57 Cortisol AM Sample 8.7 ug/dL (4.46-22.7) 08/02/18 07:55 Plasma Cortisol PM 5.68 ug/dL (1.7-14.1) 08/01/18 16:57 Urine Color Yellow (YELLOW) 08/01/18 12:06 Urine Clarity Hazy (Clear) 08/01/18 12:06 Urine pH 5.0 (5.0-8.0) 08/01/18 12:06 Ur Specific [place] 1.015 (1.003-1.030) 08/01/18 12:06 Urine Protein Negative mg/dL (NEGATIVE) 08/01/18 12:06 Urine Glucose (UA) Normal mg/dL (Normal) 08/01/18 12:06 Urine Ketones Negative mg/dL (NEGATIVE) 08/01/18 12:06 Urine Blood Negative (NEGATIVE) 08/01/18 12:06 Urine Nitrate Negative (NEGATIVE) 08/01/18 12:06 Urine Bilirubin Negative (NEGATIVE) 08/01/18 12:06 Urine Urobilinogen Normal mg/dL (0.2-1.0) 08/01/18 12:06 Ur Leukocyte Esterase Neg Tala/uL (Negative) 08/01/18 12:06 Urine WBC (Auto) 2 /hpf (0-5) 08/01/18 12:06 Urine RBC (Auto) < 1 /hpf (0-3) 08/01/18 12:06 Ur Squamous Epith Cells 4 /hpf (0-5) 08/01/18 12:06 Urine HCG, Qual Negative (NEGATIVE) 08/01/18 12:06 Urine Opiates Screen Negative (NEGATIVE) 08/02/18 15:20 Urine Methadone Screen Negative (NEGATIVE) 08/02/18 15:20 Ur Barbiturates Screen Negative (NEGATIVE) 08/02/18 15:20 Ur Phencyclidine Scrn Negative (NEGATIVE) 08/02/18 15:20 Ur Amphetamines Screen Negative (NEGATIVE) 08/02/18 15:20 U Benzodiazepines Scrn Negative (NEGATIVE) 08/02/18 15:20 U Oth Cocaine Metabols Negative (NEGATIVE) 08/02/18 15:20 U Cannabinoids Screen Negative (NEGATIVE) 08/02/18 15:20 Double Strand DNA Ab 16 IU/mL H 08/01/18 16:57 RPR Nonreactive (NONREACTIVE) 08/01/18 16:57 HIV 1&2 Antibody Screen Negative (NEGATIVE) 08/02/18 11:49 - Hospital Course Hospital Course: On admission: Patient is a 52 year old female with pmhx of SLE, pulmonary arterial hypertension who presents to ED today for evaluation of right leg cramps, right index finger cramps, and right facial tingling. Patient reports episode right leg and index finger cramp this morning after getting out of bed. She reports an episode of right sided epistaxis, with resolution by tissue packing. Patient then noticed right sided cheek/frontal/parietal occipital tingling sensation. Patient reports 3 episodes of cramping over 1 day last week; lasting 5-10 minutes, relieved with massage. Patient reports chronic headaches, worsened since stopping her SLE medication Triclear? Patient also notes lightheadedness with position changes. Patient denies weakness, facial droop, slurred speech, syncope, chest pain, SOB, LE edema/pain Hospital course: CT head: No acute intracranial pathology CT cervical: mild degenerative disc changes. Small central posterior bulging disc at C3-C4 and C5-C6 associated w/ mild spinal stenosis CT lumbar: Bulging discs at L3-L4, L4-L5 CT thoracic: bulging disc at T10-T11 Neurology, Dr. Navarro, consulted. MRI brain: No acute intracranial abnormality. Mild age advanced global parenchymal volume loss. 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 MRI lumbar: posterior disc bulge at L3-L4 Pt hypoglycemic on admission, hx of steroid use due to SLE. PM cortisal normal. Pt's condition improved rapidly throughout hospital stay. Discharged home with follow up with PMD, Rheumatology Dr. Paris, Neurology Dr. Navarro. No changes in home medications made. On discharge interview, pt denies fever, chills, chest pain, sob, abdominal pain, n/v/d, headache, dizzines, lightheadedness, seizure- like activity, tremors, numbness or tingling. This is a summary of the hospital course. Please see EMR for full details. Discharge Exam - Additional Findings Additional findings: - Constitutional Appears: Non-toxic, No Acute Distress - Head Exam Head Exam: ATRAUMATIC, NORMAL INSPECTION, NORMOCEPHALIC - Eye Exam Eye Exam: EOMI, Normal appearance - ENT Exam ENT Exam: Mucous Membranes Moist, Normal Exam - Neck Exam Neck Exam: Full ROM, Normal Inspection Additional comments: 1 cm sebaceous cyst, midline, dorsal ~C3 - Respiratory Exam Respiratory Exam: Decreased Breath Sounds, Clear to Ausculation Bilateral, NORMAL BREATHING PATTERN - Cardiovascular Exam Cardiovascular Exam: REGULAR RHYTHM, +S1, +S2. absent: Bradycardia, Murmur - GI/Abdominal Exam GI & Abdominal Exam: Soft, Normal Bowel Sounds. absent: Distended, Tenderness - Extremities Exam Extremities Exam: Normal Inspection. absent: Calf Tenderness, Joint Swelling, Pedal Edema Additional comments: left hip vertical incision, well healed. Left fibular incision/graft, well healed b/l hands: dry skin, redness. joint deformity worst at 5th digit right index finger midline, full ROM, non tender to palpation - Back Exam Back Exam: NORMAL INSPECTION - Neurological Exam Neurological Exam: Alert, Awake, CN II-XII Intact, Normal Gait, Oriented x3. absent: Motor Sensory Deficit - Psychiatric Exam Psychiatric exam: Normal Affect, Normal Mood - Skin Skin Exam: Dry (improving), Intact, Normal Color, Warm Discharge Plan - Follow Up Plan Condition: GOOD Disposition: HOME/ ROUTINE Instructions: Heart Healthy Diet, Headache, Adult (DC), Paresthesias (DC) Additional Instructions: Pt is medically stable for discharge home as per Dr. Garcia. Pt should resume home meds as previously prescribed. Patient instructed to follow up with PMD within 1 week of discharge. Patient instructed to follow up with Fitness Consultant, Dr. Paris within 1 week of discharge. Patient instructed to stay well hydrated and advised to abstain from strenuous physical activity until further workup outpatient. Patient instructed to return to ED with worsening of symptoms Instructions explained to pt who understands and agrees with discharge plan. Referrals: Juan Navarro MD [Staff Provider] -
--- NOTE | 2018-08-05 21:39 | CARD ---
APPROVED REPORT Date of service: 08/01/2018 EKG Measurement Heart [id number] <Conclusion> Sinus rhythm with premature atrial complexes with aberrant conduction Nonspecific T wave abnormality Abnormal ECG
[2018-08-06 16:20] VITALS: O2SAT 99
== END 2018-08-03 16:51 | disposition home or self-care (01) ==
LOC: C.ER 09:06 → C.6T 14:00
PROVIDERS: ADMIT Hospitalist; ATTEND Hospitalist
DX: M54.81 Occipital neuralgia (principal); M47.816 Spondylosis without myelopathy or radiculopathy, lumbar region; M32.9 Systemic lupus erythematosus, unspecified; E11.649 Type 2 diabetes mellitus with hypoglycemia without coma; D72.819 Decreased white blood cell count, unspecified; F41.9 Anxiety disorder, unspecified; G89.29 Other chronic pain; I27.21 Secondary pulmonary arterial hypertension; J45.909 Unspecified asthma, uncomplicated; M25.78 Osteophyte, vertebrae; M50.30 Other cervical disc degeneration, unspecified cervical region; M47.9 Spondylosis, unspecified; M48.02 Spinal stenosis, cervical region; Z87.891 Personal history of nicotine dependence
CPT/HCPCS: 36415; 70450; 70551; 71045; 72126; 72129; 72132; 72141; 72148; 80053; 80061; 81001; 82306; 82533; 82550; 82607; 82948; 83036; 83735; 84100; 84378; 84425; 84443; 84484; 84703; 85025; 85610; 85651; 85730; 86039; 86140; 86225; 86592; 86703; 93005; 96372; 96374; 96375; 96376; 97110; 97116; 97162; 97165; 97530; 99285; G0378; G0480; G8978; G8979; G8987; G8988; G8989; J1644; J1885; J2060; J2405; J3411; J7030; Q9967

== ENCOUNTER 2018-08-08 03:11 | Emergency (ER) | payer OTHER ==
[2018-08-08 03:11] VITALS: BMI 27.2
--- NOTE | 2018-08-08 04:06 | C.PDOC ---
History Of Present Illness Pt presents with severe constipation, rectal pain . Last bm 2-3 days ago. No f/c/n/v Time Seen by Provider: 08/08/18 04:06 Chief Complaint (Nursing): GI Problem Past Medical History Reviewed: Historical Data, Nursing Documentation, Vital Signs Vital Signs: Last Vital Signs Temp 98.5 F 08/08/18 03:24 Pulse 79 08/08/18 03:24 Resp 18 08/08/18 03:24 BP 132/82 08/08/18 03:24 Pulse Ox 100 08/08/18 03:24 - Medical History PMH: Arthritis, Asthma, Fractures Surgical History: - [facility] INJECT/INFUSE NEC (08/23/04) INTRAOPER CHOLANGIOGRAM (03/07/05) LAPAROSCOP LYSIS-PERITONEAL ADHES (08/09/06) LAPAROSCOP UNILAT SALPINGO-OOPHORECTOMY (08/09/06) LAPAROSCOPIC CHOLECYSTECTOMY (03/07/05) UMBIL HERNIA REPAIR NEC (08/09/06) Family History: States: No Known Family Hx - Social History Hx Alcohol Use: Yes Hx Substance Use: No - Immunization History Hx Tetanus Toxoid Vaccination: No Hx Influenza Vaccination: Yes Hx Pneumococcal Vaccination: No Review Of Systems Constitutional: Negative for: Fever, Chills Gastrointestinal: Positive for: Constipation. Negative for: Abdominal Pain Musculoskeletal: Negative for: Back Pain Skin: Negative for: Rash Neurological: Negative for: Weakness Psych: Negative for: Anxiety Physical Exam - Physical Exam Appears: Non-toxic, No Acute Distress Gastrointestinal/Abdominal: Soft, No Tenderness, Distention (mild) Rectal: No Tenderness, Other (large amount of hard stool in the vault) ED Course And Treatment O2 Sat by Pulse Oximetry: 100 Pulse Ox Interpretation: Normal Progress Note: With [place] present, pt was manually dis impacted of about 500-600cc of hard stool. Pt feels better post Disposition Counseled Patient/Family Regarding: Studies Performed, Diagnosis, Need For Followup - Disposition Referrals: Jim Alvarado MD [Staff Provider] - Disposition: HOME/ ROUTINE Disposition Time: 04:06 Condition: FAIR Additional Instructions: Please return if symptoms recur Prescriptions: Polyethylene Glycol 3350 [Miralax] 17 gm PO DAILY #270 ml Instructions: Constipation, Adult (DC), Fecal Impaction Forms: [facility] (Chinese) - Clinical Impression Clinical Impression: Constipation, Fecal impaction
[2018-08-08 04:44] VITALS: BP 130/80; PULSE 82; RESP 20; TEMP 98; O2SAT 98
== END 2018-08-08 04:42 | disposition home or self-care (01) ==
LOC: C.ER 03:11
DX: K59.00 Constipation, unspecified (principal)